=== PATIENT | male | born 1970 | race Caucasian/White ===

== ENCOUNTER 2021-11-02 07:15 | Emergency (ER) | payer MEDICAID, SELFPAY ==
[2021-11-02] MEDS: Ibuprofen 600 MG TABLET PO (10:31)
[2021-11-02] MEDS: Fluorescein Sodium STRIP 1 STRIP EYE-LEFT (10:33)
[2021-11-02] MEDS: Tetracaine HCl/PF 0.5% Oph Sol 4 ML DROPS 3 DROP EYE-LEFT (10:33)
--- NOTE | 2021-11-10 11:50 | ED.GENADULT ---
HPI - General Adult General Stated complaint: F/O in R eye Time Seen by Provider: 11/02/21 09:13 History of Present Illness HPI narrative: Patient complains of right eye photophobia and pain, denies vision loss, this started 2 days ago, no discharge Related Data Allergies Allergy/AdvReac Type Severity Reaction Status Date / Time amoxicillin [AMOXICILLIN] Allergy Mild HIVES Unverified 12/23/19 14:51 Review of Systems Review of Systems: Positive for right eye pain with light Negatives no fever no chills no dizziness no weakness no headache no neck pain no nausea or vomiting, no discharge from the eye no vision loss no injury to eye Yes all other systems are reviewed and are negative [facility] Past Medical History Source: nursing notes reviewed Social History Social History Advance Directives: Yes Advance Directives Information Provided: Yes Advance Directives on File: No Physical Exam ED General appearance is uncomfortable no acute distress, pacing The eyes pupils equal round reactive to light, extraocular motions are intact, visual acuity was not obtained patient uncooperative Staining for corneal abrasion did not show any dye uptake, tetracaine did not relieve the eye pain Neck is supple Respiratory no distress Skin no rash Course Course Course Narrative: Exam was limited due to patient's discomfort, I was not able to get an intra-ocular pressure reading He said he wanted to see an eye doctor and I called Dr. Harper office across the street, and they agreed to see the patient and that he should come over now At believe he has iritis and he left with instructions to go to Dr. Harper who office and he said he knew where it is and left the department to go to the eye doctor Discharge Plan Discharge Clinical Impression: Iritis Patient Disposition: Home, Self-Care Additional Instructions: Go to Dr. Harper office now they will see you and do a full examination Referrals: Crescencio Harper [Physician] - (Iritis) Interventions: ED Discharge Assessment Last Done: 11/02/21 10:34 Discharge Date/Time: 11/02/21 10:35
== END 2021-11-02 10:35 | disposition home or self-care (01) ==
PROVIDERS: Emergency Provider Student in an Organized Health Care Education/Training Program; PCP Family Medicine
DX: H20.9 Unspecified iridocyclitis (principal); T15.91XA Foreign body on external eye, part unspecified, right eye, initial encounter; X58.XXXA Exposure to other specified factors, initial encounter; Y93.9 Activity, unspecified; Y92.9 Unspecified place or not applicable; Y99.9 Unspecified external cause status
CPT/HCPCS: 99282; 99283

== ENCOUNTER 2022-10-18 20:01 | Emergency (ER) | payer OTHER, SELFPAY ==
[2022-10-18 20:12] VITALS: BP 151/73; BP 180/76; PULSE 69; PULSE 94; RESP 11; TEMP 36.9; O2SAT 98; O2SAT 99; BMI 22.1
--- NOTE | 2022-10-18 20:23 | ECG_ITS ---
Test Reason : OD Blood Pressure : / mmHG Vent. Rate : 064 BPM Atrial Rate : 064 BPM P-R Int : 180 ms QRS Dur : 098 ms QT Int : 404 ms P-R-T Axes : 074 068 058 degrees QTc Int : 416 ms Normal sinus rhythm Normal ECG No previous ECGs available Referred By: Generic ED Physician Electronically Signed By:ANNIA MARTEL MD
--- NOTE | 2022-10-18 21:16 | MHC.RECOVSUP ---
? Reason for consult:OPI o? Current location:ED10? o? Identified substance use concern:? -? Overdose -? Support ? Intervention: o? Community resources provided ? Plan:Discharge ? Additional information:Pt declined any services, says he's already receiving treatment and is on MAT but he missed h is dose and picked up. provided this pt with recovery resources and business card to contact for outpatient services.
[2022-10-18 22:02] VITALS: BP 127/74; PULSE 58; RESP 18; TEMP 36.3; O2SAT 96
--- NOTE | 2022-10-18 22:17 | ED.OVERDOSE ---
HPI - Overdose General Chief Complaint: Overdose Stated Complaint: fentanyl od, per ems Time Seen by Provider: 10/18/22 20:47 Source: patient Mode of arrival: EMS Limitations: no limitations History of Present Illness HPI Narrative: Patient comes to the emergency room by ambulance. Patient was found by bystanders, EMS called, per EMS patient was nodding off, agonal breathing. Patient received 0.4 mg of nasal Narcan. Patient had good response, reports using 1 bag of heroin and crack . Patient states this was accidental, denies suicidal or homicidal ideation. Patient states that he feels back to baseline. Related Data Allergies Allergy/AdvReac Type Severity Reaction Status Date / Time amoxicillin [AMOXICILLIN] Allergy Mild HIVES Unverified 12/23/19 14:51 Review of Systems Review of Systems: Constitutional : No Weight loss, No Fever, No Chills, No Night Sweats, No Fatigue, No Malaise ENT/Mouth : No Hearing loss, No Ear Pain, No Nasal Congestion, No Sinus Pain, No Hoarseness, No sore throat, No Rhinorrhea, No Swallowing Difficulty Eyes: No Eye Pain, No Swelling, No Redness, No Foreign Body, No Discharge, No Vision Changes Cardiovascular : No Chest Pain, No SOB, No Dyspnea on Exertion, No Orthopnea, No Edema, No Palpitations Respiratory : No Cough, No Sputum, No Wheezing, No Smoke Exposure, No Dyspnea Gastrointestinal : No Nausea, No Vomiting, No Diarrhea, No Constipation, No abdominal Pain, No Hematochezia, No Melena Genitourinary : no irregular bleeding, No Dysuria, No Urinary Frequency, No Hematuria, No Urinary Incontinence, No Urgency, No Flank Pain, No Urinary Flow Changes, No Hesitancy Musculoskeletal : No joint pain, No Myalgias, No Joint Swelling Skin : No Skin Lesions, No rash Neuro : No Weakness, No Numbness, No Paresthesias, No Loss of Consciousness, No Dizziness, No Headache Psych : No Anxiety/Panic, No Depression, No SI/HI/AH/VH, accidental overdose Heme/Lymph: No Bruising, No Bleeding,No Lymphadenopathy Endocrine : No Polyuria, No Polydipsia, No Temperature Intolerance PMF Past Medical History Medical History (Updated 10/18/22 @ 22:20 by Maria Esther Moreland MD) Polysubstance abuse Social History Social History Advance Directives: No Advance Directives Information Provided: Yes Physical Exam Vital Signs: Vital Signs: Last Vital Signs Temp 97.4 F 10/18/22 22:02 Pulse 58 10/18/22 22:02 Resp 18 10/18/22 22:02 BP 127/74 10/18/22 22:02 Pulse Ox 96 10/18/22 22:02 O2 Del Method Room Air 10/18/22 22:02 BMI result Body Mass Index 22.1 Const: Other: Appearance: Alert. Oriented X3. No acute distress. Eyes: Pupils equal, round and reactive to light. ENT: Pharynx normal. Neck: Normal inspection. Neck supple. No lymph nodes noted. No crepitus CVS: Normal heart rate and rhythm. Pulses normal. Normal S1 and S2 Respiratory: No respiratory distress. Breath sounds normal. No Wheezing. No rales Abdomen: Soft and nontender. No rigidity. No distention. Skin: Skin warm and dry. Normal skin color. Normal skin turgor. Extremities: No lower extremity edema. No Lacerations. No Rash Neuro: Oriented X 3. No motor deficit. No sensory deficit. Moving all extremities. No slurred speech. CN 2 through 12 grossly intact Psych: calm, cooperative, normal affect Medical Decision Making Medical Decision Making MDM Narrative: -patient had good response to Narcan, since patient arrived to the emergency room, patient has been awake and alert x3,, cooperative. -patient denies suicidal or homicidal ideation -vital stable, oxygen saturation 98% on room air -patient was in observation for over 2 hours. Patient feels completely back to baseline. Throughout his entire stay, patient has been saturating 96-99% on room air. -patient denied care/sude consult -patient given home Narcan My interpretation of EKG: Heart rate 64, no ST segment depression or elevation, no T-wave inversion, QTC 460 -patient denies any chest pain or shortness of breath. Differential Diagnosis Differential Diagnoses: The differential diagnosis associated with the presentation includes (Substance abuse, suicidal ideation, accidental intoxication) Discharge Plan Discharge Clinical Impression: Drug overdose Patient Disposition: Home, Self-Care Instructions: Adult Overdose (ED) Additional Instructions: Please follow-up with your primary care physician tomorrow. If you have any worsening or new symptoms, please return to the emergency room or call 911
--- NOTE | 2022-10-18 22:31 | PC.NURSE ---
Addendum entered by Yisel Good 10/18/22 22:31: pt changed into hospital attire. belongings secured in decon by security. pt calm and cooperative Original Note: late entry- pt vhsnged into hospital attire. belongings secured in decon. pt calm and coocper
[2022-10-18 22:37] VITALS: BP 125/60; PULSE 67; RESP 16; O2SAT 99
[2022-10-18] MEDS: Naloxone HCl Nasal TAKE HOME 4 MG SPRAY 8 MG NOSTRILALT (22:38)
--- NOTE | 2022-10-18 23:00 | PC.NURSE ---
pt ambulatory at discharge. pt given take home narcan. pt calm and cooperative. vss. pt provided with discharge packet. pt verbalizes understanding of discharge plan. pt brought to decon by this rn to obtain belongings
== END 2022-10-18 23:02 | disposition home or self-care (01) ==
PROVIDERS: Emergency Provider Emergency Medicine
DX: T40.411A Poisoning by fentanyl or fentanyl analogs, accidental (unintentional), initial encounter (principal); Y92.9 Unspecified place or not applicable; Z71.51 Drug abuse counseling and surveillance of drug abuser
CPT/HCPCS: 93005; 99284; 99285

== ENCOUNTER → 2022-10-18 20:23 | Outpatient (BNV) | payer OTHER, SELFPAY | PROVIDERS: Emergency Provider Emergency Medicine; Visit Provider Internal Medicine Cardiovascular Disease | DX: R06.02 Shortness of breath (principal); F11.20 Opioid dependence, uncomplicated | CPT/HCPCS: 93010 ==

== ENCOUNTER 2022-12-14 12:10 | Emergency (ER) | payer OTHER, SELFPAY ==
[2022-12-14 12:48] VITALS: BP 138/93; PULSE 62; RESP 15; TEMP 36.8; O2SAT 98; BMI 24.3
--- NOTE | 2022-12-14 12:49 | ED.EYEPROB ---
HPI - Eye Problem General Chief complaint: Eye Problems Stated complaint: Metal in R eye cant see Time Seen by Provider: 12/14/22 13:18 Source: patient Mode of arrival: ambulatory Limitations: no limitations History of Present Illness HPI Narrative: 52 yo male who uses corrective lenses but has not used them for 4-5 yrs as he misplaced them presents to the ER with complaints of right eye pain, photophobia, blurry vision after having a welding injury 6 days ago. 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 He was not using any safety glasses. Tetanus shot is not up-to-date Related Data Previous Rx's Medication Instructions Recorded erythromycin 5 mg/gram (0.5 %) eye 0.5 inch ophthalmic (eye) TID #3.5 12/14/22 ointment grams Allergies Allergy/AdvReac Type Severity Reaction Status Date / Time amoxicillin [AMOXICILLIN] Allergy Mild HIVES Unverified 12/23/19 14:51 Review of Systems Review of Systems: Yes all other systems are reviewed and are negative Constitutional: Constitutional: Reports no additional constitutional complaints, Denies body ache(s), Denies chills, Denies fever(s), Denies headache(s) and Denies weakness Eyes: Eyes: Reports no additional eye complaints, Denies change in vision, Denies eye discharge, Denies irritation, Reports eye pain, Reports requires corrective lenses and Reports photophobia ENT: Reports system reviewed and no additional complaints, except as documented, Denies dizziness, Denies headache(s), Denies nasal congestion, Denies nasal discharge and Denies neck pain Cardiovascular: Cardiovascular: Reports no additional cardiovascular complaints, Denies chest pain, Denies leg edema and Denies dyspnea Respiratory: Respiratory: Reports no additional respiratory complaints, Denies cough and Denies dyspnea Gastrointestinal: Gastrointestinal: Reports no additional gastrointestinal complaints, Denies abdominal pain, Denies diarrhea, Denies nausea and Denies vomiting Genitourinary: Genitourinary: Denies urinary incontinence Musculoskeletal: Musculoskeletal: Reports no additional musculoskeletal complaints, Denies back pain, Denies arthralgias, Denies joint swelling, Denies neck pain, Denies numbness and Denies tingling Integumentary/Breasts: Skin/Breast: Reports system reviewed and no additional complaints, except as docu and Denies rash Neurologic: Reports system reviewed and no additional complaints, except as documented, Denies Abnormal speech present, Denies dizziness, Denies headache(s), Denies numbness, Denies tingling and Denies weakness PMFSH Past Medical History Attestation statement: The following information was validated with the patient. Source: old records reviewed and nursing notes reviewed Medical History Polysubstance abuse Social History Social History Advance Directives: No Advance Directives Information Provided: Yes Physical Exam Vital Signs: Vital Signs: Last Vital Signs Temp 98.3 F 12/14/22 12:48 Pulse 62 12/14/22 12:48 Resp 15 12/14/22 12:48 BP 138/93 H 12/14/22 12:48 Pulse Ox 98 12/14/22 12:48 O2 Del Method Room Air 12/14/22 12:48 BMI result Body Mass Index 24.3 Const: General: cooperative, healthy appearing, comfortable and no acute distress Orientation/consciousness: patient oriented x3 Limitations: no limitations HEENT: Head: Yes normal to inspection Ears: hearing grossly normal bilaterally General nose exam: Normal external nose present Face and sinus: Yes normal facial exam Mouth: Normal oral and palatal mucosa present Throat: Yes posterior oropharynx normal Eyes: General: appearance normal, both eyes and all related structures Periorbital: periorbital findings normal Eyelids: Yes eyelids normal Conjunctivae: conjunctival abnormal (injection-right) Sclerae: scleral abnormal (right scleral swelling) Corneas: corneas abnormal on the right (at 3 o clock position there is rust ring ?FB) fluorescein used and fluorescein used Pupils: Equal, round and reactive pupils present EOM: EOMs intact bilaterally Direct Ophthalmoscopy: normal light reflex and photophobia Neck: Neck: Yes normal visual inspection, Yes full ROM and Yes no lymphadenopathy Chest: Chest palpation & inspection: normal inspection of the chest Resp: Effort & Inspection: normal respiratory effort Auscultation: clear to auscultation bilaterally Cardio: Rate: regular rate Rhythm: regular rhythm Peripheral pulses: Peripheral pulses 2+ throughout GI: Inspection: Yes normal to inspection Palpation (GI): Soft to palpation and nontender Auscultation: normal bowel sounds Back/Spine/Pelvis: Thoracic/Lumbar Spine: thoracic and lumbar spine normal to inspection Skin: General skin exam: no rashes or lesions noted Neuro: General: patient oriented x3, no focal motor deficits and normal sensation to monofilament Cranial nerves: Yes Equal, round and reactive pupils present Cognition (Neuro): normal cognition Speech: No Abnormal speech present Gait exam (Neuro): Normal gait present Motor exam (neuro): 5/5 motor strength present throughout Extrem: General: Yes normal to inspection Course Reevaluation(s) Reevaluation #1: Patient complains of right eye vision loss, foreign body sensation and pain with photophobia, he thinks it is from a welding injury at work 6 days ago and may have gotten a foreign body in the eye This is rapid medical exam in triage with full evaluation and dispo to be done by provider in the ER Medications Administered Discontinued Medications Generic Name Dose Route Start Last Admin Trade Name Freq PRN Reason Stop Dose Admin Diphtheria/Tetanus/Acell Pertussis 0.5 ml 12/14/22 13:25 12/14/22 13:50 Diphth,Pertus(Acell),Tet Adult 0.5 Ml Syringe IM 12/14/22 13:26 0.5 ml .ONCE ONE Administration Fluorescein Sodium 1 strip 12/14/22 13:18 12/14/22 13:24 Fluorescein Sodium Strip EYE-RIGHT 12/14/22 13:19 1 strip ONCE ONE Administration Tetracaine HCl 1 drop 12/14/22 13:18 12/14/22 13:24 Tetracaine Hcl/Pf 0.5% Oph Maile 4 Ml Drops EYE-RIGHT 12/14/22 13:19 1 drop ONCE ONE Administration Medical Decision Making Medical Decision Making MDM Narrative: 52 yo male who uses corrective lenses but does not have them with him presents to the ER with complaints of right eye pain, photophobia, blurry vision after having a welding injury 6 days ago. 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 He was not using any safety glasses. 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 Harper who recommended antibiotic ointment and he will follow-up with the patient in the office next week Prescription Management I considered prescription management with: Antibiotic see discussion above Discharge Plan Discharge Clinical Impression: Acute foreign body of right cornea Patient Disposition: Home, Self-Care Instructions: Eye Foreign Body (ED) Additional Instructions: CALL THE EYE DOCTOR NEXT WEEK TO FOLLOW-UP TAKE MOTRIN OR TYLENOL FOR PAIN NEEDED Prescriptions: New erythromycin 5 mg/gram (0.5 %) ointment 0.5 inch ophthalmic (eye) TID Qty: 3.5 0RF Referrals: Crescencio Harper [Physician] - 3 days
--- OUTSIDE RECORDS SUMMARY | 2022-12-14 13:23 | XMS_ITS | Continuity of Care Document ---
Author Name Unknown Organization [facility] [address] Address [address] [place] [address]- Care Team Providers Care Electric Blanket Packer Name Role Phone Lora GÓMEZ, Lobo Sharp Primary Care Physician [phone] [id number] Date(s[facility] 06/05/[facility] - 07/05/22 [facility] Adult [address] [place] [address]- Allergies, Adverse Reactions, Alerts No Known Allergies Immunizations Given and Recorded Vaccine Date Status Refusal Reason tetanus/diphtheria/pertussis, acel(Tdap) 05/07/19 Given influenza virus vaccine, inactivated 1 04/15/19 Gi jillian Not Given Vaccine Date Status Refusal Reason tetanus-diphtheria toxoids (Td) 04/15/19 Not Given Parent Or Guardian Refuses 1Result Comment: [facility]-[id number] Medications aspirin 81 mg oral delayed release tablet 81 mg, By Mouth, Daily, # 100 tablet, Refills 3, Tot. Refills 3, Maintenance, 05/10/21 12:56:00 EST, Route to Pharmacy Electronically, [facility], 179.5, cm, 09/23/19 12:23:00 EDT, Height Start Date: 05/10/21 Status: Ordered atorvastatin 10 mg oral tablet 1 tablet = 10 mg, By Mouth, Daily at bedtime, # 30 tablet, 0 Refills, Maintenance, 04/06/19 11:27:00 EST, Tablet, [facility], 183, cm, 04/06/19 5:31:00 EST, Height, 84.3, kg, 03/31/19 1:34:00 EST, Dry Weight Start Date: 04/06/19 Status: Ordered CVS PAIN RELIEF 500 MG TABLET CVS PAIN RELIEF 500 MG TABLET, 0 Refills, Maintenance, 04/15/19 13:13:00 EST Start Date: 04/15/19 Status: Ordered lisinopril 10 mg oral tablet 10 mg, 1, tablet, By Mouth, Daily, # 30 tablet, Refills 11, Tot. Refills 11, Maintenance, 11/15/19 12:58:00 EDT, Route to Pharmacy Electronically, [facility], 179.5, cm, 09/23/2011:23:00 EDT, Height, 84.3, kg, 03/31/19 1:34:00 ES... Start Date: 11/15/19 Status: Ordered methadone 10 mg oral tablet 3 tablet = 30 mg, By Mouth, Daily, 0 Refills, Maintenance, 04/06/19 11:28:00 EST, Tablet, Partial fill upon patient request Start Date: 04/06/19 Status: Ordered metoprolol 50 mg oral tablet, extended release 50 mg, 1, tablet, By Mouth, Daily, # 30 tablet, Refills 11, Tot. Refills 11, Maintenance, 05/10/21 12:57:00 EST, Route to Pharmacy Electronically, [facility], 179.5, cm, 09/23/2011:23:00 EDT, Height Start Date: 05/10/21 Status: Ordered Narcan 4 mg/0.1 mL nasal spray = 4 mg, Nares, Both, Once, # 2 each, 0 Refills, Soft Stop, 04/15/19 13:46:00 EST, [facility] #[id number], 179.5, cm, 04/15/19 13:12:00 EST, Height Start Date: 04/15/19 Status: Ordered Problem List Condition Confirmation Course Effective Dates Status H ealth Status Informant Acute systolic heart failure Confirmed Active Heroin overdose Confirmed Active Hilar lymphadenopathy Confirmed Active Skin infection Confirmed Active Insomnia Confirmed Active Opioid dependence, in remission Confirmed Active Tobacco abuse Confirmed Active Wound of skin Confirmed Active Social History Social History Type Response Smoking Status 10 or more cigarette s (1/2 pack or more)/day in last 30 days entered on: 03/31/19 Sex Patient Care team information Care Team Personnel Name: Stephanie Jay RN Position: S ED RN W/OE and Tasks Member Role: Primary Care Nurse Name: Renee Li RN Position: [facility] RN Member Role: Primary Care Nurse Name: Penny Hernandez RN Position: [facility] SN RN Member Role: Primary Care Nurse Name: Enriqueta Jacobo RN Position: [facility] RN Member Role: Primary Care Nurse Name: Lobo Paulino MD Position: [facility] Primary Care Physician Member Role: PCP Address: Address: [address] [place] [id number] [place] Care Team Related Persons Name: RIAZ COELHO Address: home [address] [place] [id number]
--- OUTSIDE RECORDS SUMMARY | 2022-12-14 13:23 | XMS_ITS | Continuity of Care Document ---
Author Name Unknown Organization [facility] Hans lt Address [address] [place] [address]- Care Team Providers Care Line Manager Name Role Phone Lobo Paulino MD Primary Care Physician Encounter [facility] [place] Date(s): 04/15/19 - 04/22/19 [facility] Adult [address] [place] [address]- [facility] Encounter Diagnosis Acute systolic heart failure(Discharge Diagnosis) - 04/15/19 Heroin overdose(Discharge Diagnosis) - 04/15/19 Tobacco abuse(Discharge Diagnosis) - 04/15/19 Wound of skin(Discharge Diagnosis) - 04/15/19 Hilar lymphadenopathy(Discharge Diagnosis) - 04/15/19 Insomnia(Discharge Diagnosis) - 04/15/19 Attending Physician: Shobha Mcgovern NP Referring Physician: Lobo Paulino MD Allergies, Adverse Reactions, Alerts Substance Reaction Severity Status NKA Active Immunizations Given and Recorded Vaccine Date Status Refusal Reason influenza virus vaccine, inactivated 1 04/15/19 Gi jillian Not Given Vaccine Date Status Refusal Reason tetanus-diphtheria toxoids (Td) 04/15/19 Not Given Parent Or Guardian Refuses 1Result Comment: [facility]-[id number] Medications aspirin 81 mg oral tablet 1 tablet = 81 mg, By Mouth, Daily, # 30 tablet, 0 Refills, Maintenance, 04/15/19 14:34:00 EST, Tablet Start Date: 04/15/19 Status: Ordered atorvastatin 10 mg oral tablet 1 tablet = 10 mg, By Mouth, Daily, # 30 tablet, 0 Refills, Maintenance, 04/15/19 14:35:00 EST Start Date: 04/15/19 Status: Ordered [facility] NICOTINE 21 MG/24HR PATCH [facility] NICOTINE 21 MG/24HR PATCH, 0 Refills, Maintenance, 04/15/19 13:13:00 EST Start Date: 04/15/19 Status: Ordered [facility] PAIN RELIEF 500 MG TABLET [facility] PAIN RELIEF 500 MG TABLET, 0 Refills, Maintenance, 04/15/19 13:13:00 EST Start Date: 04/15/19 Status: Ordered Hibiclens 4% soap 1 applicator, Topically, Once, # 240 mL, 1 Refills, Soft Stop, 04/15/19 13:45:00 EST, [id number], 1 applicator Topically Once, 179.5, cm, 04/15/19 13:12:00 EST, Height Start Date: 04/15/19 Status: Ordered lisinopril 10 mg oral tablet 10 mg, 1, tablet, By Mouth, Daily, # 30 tablet, Refills 0, Tot. Refills 0, Maintenance, 04/15/19 14:35:00 EST, Do Not Route Start Date: 04/15/19 Status: Ordered melatonin 5 mg oral tablet 1 tablet = 5 mg, By Mouth, Daily at bedtime, PRN for insomnia, # 60 tablet, 0 Refills, Acute 05/13/19 14:46:00 EST, 04/15/19 14:46:00 EST, Tablet, [facility]/pharmacy #[id number], 179.5, cm, 04/15/19 13:12:00 EST, Height Start Date: 04/15/19 Stop Date: 05/13/19 Status: Ordered methadone 10mg methadone 10mg, See Instructions, # 1 each, Refills 0, Tot. Refills 0, Maintenance, Pt taking 30mg daily, methadone clinic, 04/15/19 14:35:00 EST, Compound Start Date: 04/15/19 Status: Ordered metoprolol 50 mg oral tablet, extended release 50 mg, 1, tablet, By Mouth, Daily, # 30 tablet, Refills 0, Tot. Refills 0, Maintenance, 04/15/19 14:36:00 EST, Do Not Route Start Date: 04/15/19 Status: Ordered Narcan 4 mg/0.1 mL nasal spray = 4 mg, Nares, Both, Once, # 2 each, 0 Refills, Soft Stop, 04/15/19 13:46:00 EST, [id number], 179.5, cm, 04/15/19 13:12:00 EST, Height Start Date: 04/15/19 Status: Ordered Problem List Condition Effective Dates Status Health Status Inform ant Acute systolic heart failure(Confirmed) Active Heroin overdose(Confirmed) Active Hilar lymphadenopathy(Confirmed) Active Insomnia(Confirmed) Active Tobacco abuse(Confirmed) Active Wound of skin(Confirmed) Active Diagnosis Diagnosis Type Effective Dates Health Status Clinical Service Informant Acute systolic heart failure Discharge Diagnosis 04/15/19 Heroin overdose Discharge Diagnosis 04/15/19 Tobacco abuse Discharge Diagnosis 04/15/19 Wound of skin Discharge Diagnosis 04/15/19 Hilar lymphadenopathy Discharge Diagnosis 04/15/19 Insomnia Discharge Diagnosis 04/15/19 Vital Signs Most recent to oldest [Reference Range]: 1 Height 179.5 cm (04/15/19 1:12 PM) Weight 82.4 kg (04/15/19 1:12 PM) Oxygen Saturation [94-100 %] 98 % (04/15/19 1:12 PM) Pulse Rate [55-90 bpm] 68 bpm (04/15/19 1:12 PM) Body Mass Index [18.5-24.99] 25.57 *H* (04/15/19 1:12 PM) Blood Pressure [90-138/55-84 mm Hg] 124/ 62mm Hg (04/15/19 1:12 PM) Respiratory Rate [16-30 br/min] 16 br/mi n (04/15/19 1:12 PM) Temperature [96.8-100.4 DegF] 97.7 DegF (04/15/19 1:12 PM) Mode of Delivery (Oxygen) Room air (04/15/19 1:12 PM) Blood pressure sites Arm, right (04/15/19 1:12 PM) Temperature Route Oral (04/15/19 1:12 PM) Weight Obtained Via Standing scale (04/15/19 1:12 PM) Social History Social History Type Response Smoking Status 10 or more cigarette s (1/2 pack or more)/day in last 30 days; Other: 1 pack a day, for 34 years; entered on: 11/12/18 Sex
--- OUTSIDE RECORDS SUMMARY | 2022-12-14 13:23 | XMS_ITS | Continuity of Care Document ---
Author Name Unknown Organization [facility] Hans lt Address [address] [place] [address]- Care Team Providers Care Insurance Processing Clerk Name Role Phone Lobo Paulino MD Primary Care Physician [phone] Encounter [facility] [place] Date(s): 04/27/19 - 08/05/19 [facility] Adult [address] [place] [address]- [facility] Attending Physician: Lobo Paulino MD Allergies, Adverse Reactions, Alerts Substance Reaction Severity Status NKA Active Immunizations Given and Recorded Vaccine Date Status Refusal Reason tetanus/diphtheria/pertussis, acel(Tdap) 05/07/19 Given influenza virus vaccine, inactivated 1 04/15/19 Gi jillian Not Given Vaccine Date Status Refusal Reason tetanus-diphtheria toxoids (Td) 04/15/19 Not Given Parent Or Guardian Refuses 1Result Comment: [facility]-[id number] Medications aspirin 81 mg oral delayed release tablet 81 mg, By Mouth, Daily, # 30 tablet, Refills 11, Tot. Refills 11, Maintenance, 05/04/19 17:22:00 EST, Route to Pharmacy Electronically, [facility], 179.5, cm, 04/27/19 9:59:00 EST, Height, 84.3, kg, 03/31/19 1:34:00 EST, Dry W... Start Date: 05/04/19 Status: Ordered atorvastatin 10 mg oral tablet 1 tablet = 10 mg, By Mouth, Daily at bedtime, # 30 tablet, 0 Refills, Maintenance, 04/06/19 11:27:00 EST, Tablet, [facility], 183, cm, 04/06/19 5:31:00 EST, [...] By Mouth, Daily, # 30 tablet, Refills 5, Tot. Refills 5, Maintenance, 05/04/19 17:23:00 EST, Route to Pharmacy Electronically, [facility], 179.5, cm, 04/27/19 9:59:00 EST, Height, 84.3, kg, 03/31/19 1:34:00 E... Start Date: 05/04/19 Status: Ordered methadone 10 mg oral tablet 3 tablet = 30 mg, By Mouth, Daily, 0 Refills, Maintenance, 04/06/19 11:28:00 EST, Tablet, Partial fill upon patient request Start Date: 04/06/19 Status: Ordered methadone 10mg methadone 10mg, See Instructions, # 1 each, Refills 0, Tot. Refills 0, Maintenance, Pt taking 30mg daily, methadone clinic, 04/15/19 14:35:00 EST, Compound Start Date: 04/15/19 Status: Ordered metoprolol 50 mg oral tablet, extended release 50 mg, 1, tablet, By Mouth, Daily, # 30 tablet, Refills 5, Tot. Refills 5, Maintenance, 05/04/19 17:23:00 EST, Route to Pharmacy Electronically, [facility], 179.5, cm, 04/27/19 9:59:00 EST, Height, 84.3, kg, 03/31/19 1:34:00 E... Start Date: 05/04/19 Status: Ordered Narcan 4 mg/0.1 mL nasal spray = 4 mg, Nares, Both, Once, # 2 each, 0 Refills, Soft Stop, 04/15/19 13:46:00 EST, [facility]/pharmacy #[id number], 179.5, cm, 04/15/19 13:12:00 EST, Height Start Date: 04/15/19 Status: Ordered nicotine 21 mg/24 hr transdermal film, extended release 1 patch, Topically, Daily, for 14 days, # 14 patch, 0 Refills, Acute 08/16/19 14:08:00 EDT, 08/02/19 14:08:00 EDT, Patch, [facility], 1 patch Topically Daily,x14 days, 179.5, cm,05/07/19 9:39:00 EST, Height, 84.3, kg, 03/31/19 1:... Start Date: 08/02/19 Stop Date: 08/16/19 Status: Ordered Problem List Condition Effective Dates Status Health Status Inform ant Acute systolic heart failure(Confirmed) Active Heroin overdose(Confirmed) Active Hilar lymphadenopathy(Confirmed) Active Insomnia(Confirmed) Active Opioid dependence, in remission(Confirmed) Active Tobacco abuse(Confirmed) Active Wound of skin(Confirmed) Active Social History Social History Type Response Smoking Status 10 or more cigarette s (1/2 pack or more)/day in last 30 days entered on: 03/31/19 Sex
--- OUTSIDE RECORDS SUMMARY | 2022-12-14 13:23 | XMS_ITS | Continuity of Care Document ---
Author Name Unknown Organization [facility] Hans lt Address [address] [place] [address]- Care Team Providers Care Tungsten Refiner Name Role Phone Lobo Paulino MD Primary Care Physician [phone] Encounter [facility] [id number] Date(s): 06/13/20 - 07/15/20 [facility] Adult [address] [place] [address]- Attending Physician: Lobo Paulino MD Allergies, Adverse Reactions, Alerts Substance Reaction Severity Status NKA Active Immunizations Given and Recorded Vaccine Date Status Refusal Reason tetanus/diphtheria/pertussis, acel(Tdap) 05/07/19 Given influenza virus vaccine, inactivated 1 04/15/19 Gi jillian Not Given Vaccine Date Status Refusal Reason tetanus-diphtheria toxoids (Td) 04/15/19 Not Given Parent Or Guardian Refuses 1Result Comment: [facility]-[id number] Medications aspirin 81 mg oral delayed release tablet 81 mg, By Mouth, Daily, # 100 tablet, Refills 3, Tot. Refills 3, Maintenance, 06/14/20 17:14:00 EST, Route to Pharmacy Electronically, [facility], 179.5, cm, 09/23/19 12:23:00 EDT, Height, 84.3, kg, 03/31/19 1:34:00 EST, Dry Weight Start Date: 06/14/20 Status: Ordered atorvastatin 10 mg oral tablet 1 tablet = 10 mg, By Mouth, Daily at bedtime, # 30 tablet, 0 Refills, Maintenance, 04/06/19 11:27:00 EST, Tablet, [facility], 183, cm, 04/06/19 5:31:00 [...] 11/15/19 12:58:00 EDT, Route to Pharmacy Electronically, [facility], 179.5, cm, 09/23/2011:23:00 EDT, Height, 84.3, [...] 11/15/19 12:58:00 EDT, Route to Pharmacy Electronically, [facility], 179.5, cm, 09/23/2011:23:00 EDT, Height, 84.3, kg, 03/31/19 1:34:00 ES... Start Date: 11/15/19 Status: Ordered Narcan 4 mg/0.1 mL nasal spray = 4 mg, Nares, Both, Once, # 2 each, 0 Refills, Soft Stop, 04/15/19 13:46:00 EST, [id number], 179.5, cm, 04/15/19 13:12:00 EST, Height Start Date: 04/15/19 Status: Ordered Problem List Condition Effective Dates Status Health Status Inform ant Acute systolic heart failure(Confirmed) Active Heroin overdose(Confirmed) Active Hilar lymphadenopathy(Confirmed) Active Skin infection(Confirmed) Active Insomnia(Confirmed) Active Opioid dependence, in remission(Confirmed) Active Tobacco abuse(Confirmed) Active Wound of skin(Confirmed) Active Social History Social History Type Response Smoking Status 10 or more cigarette s (1/2 pack or more)/day in last 30 days entered on: 03/31/19 Sex
--- OUTSIDE RECORDS SUMMARY | 2022-12-14 13:23 | XMS_ITS | Continuity of Care Document ---
Author Name Unknown Organization [facility] Address [address] [place] [address]- Care Team Providers Care Telemetry Rn Name Role Phone Lora GÓMEZ, Lobo Sharp Primary Care Physician [place] [facility] [place] Date(s): 06/16/20 - 07/16/20 [facility] [address] [place] [address]- Allergies, Adverse Reactions, Alerts Substance Reaction Severity Status NKA Active Immunizations Given and Recorded Vaccine Date Status Refusal Reason tetanus/diphtheria/pertussis, acel(Tdap) 05/07/19 Given influenza virus vaccine, inactivated 1 04/15/19 Gi jillian Not Given Vaccine Date Status Refusal Reason tetanus-diphtheria toxoids (Td) 04/15/19 Not Given Parent Or Guardian Refuses 1Result Comment: [facility]-[id number] Medications aspirin 81 mg oral delayed release tablet 81 mg, By Mouth, Daily, # 100 tablet, Refills 3, Tot. Refills 3, Maintenance, 06/14/20 17:14:00 EST, Route to Pharmacy Electronically, [facility], 179.5, cm, 09/23/19 12:23:00 EDT, Height, 84.3, kg, 03/31/19 1:34:00 EST, Dry Weight Start Date: 06/14/20 Status: Ordered atorvastatin 10 mg oral tablet 1 tablet = 10 mg, By Mouth, Daily at bedtime, # 30 tablet, 0 Refills, Maintenance, 04/06/19 11:27:00 EST, Tablet, [facility], 183, cm, 04/06/19 5:31:00 EST, [...] 11/15/19 12:58:00 EDT, Route to Pharmacy Electronically, [facility], 179.5, cm, 09/23/2011:23:00 EDT, Height, 84.3, [...] 11/15/19 12:58:00 EDT, Route to Pharmacy Electronically, [facility], 179.5, cm, 09/23/2011:23:00 EDT, Height, 84.3, [...]
--- OUTSIDE RECORDS SUMMARY | 2022-12-14 13:23 | XMS_ITS | Continuity of Care Document ---
Author Name Unknown Organization [facility] Hans lt Address [address] [place] [address]- Care Team Providers Care Talent Consultant Name Role Phone Lora GÓMEZ, Lobo Sharp Primary Care Physician [phone] [place] [facility] [place] 07/02/19 [facility] Adult [address] [place] [address]- [facility] Attending Physician: Tracy Crawley Admitting Physician: Tracy Crawley Referring Physician: AdmtrTracy Allergies, Adverse Reactions, Alerts Substance Reaction Severity Status NKA Active Immunizations Given and Recorded Vaccine Date Status Refusal Reason tetanus/diphtheria/pertussis, acel(Tdap) 05/07/19 Given influenza virus vaccine, inactivated 1 04/15/19 Gi jillian Not Given Vaccine Date Status Refusal Reason tetanus-diphtheria toxoids (Td) 04/15/19 Not Given Parent Or Guardian Refuses 1Result Comment: [facility]-[id number] Medications aspirin 81 mg oral delayed release tablet 81 mg, By Mouth, Daily, # 30 tablet, Refills 11, Tot. Refills 11, Maintenance, 05/04/19 17:22:00 EST, Route to Pharmacy Electronically, [facility], 179.5, cm, 04/27/19 9:59:00 EST, Height, 84.3, kg, 03/31/19 1:34:00 EST, Dry W... Start Date: 05/04/19 Status: Ordered atorvastatin 10 mg oral tablet 1 tablet = 10 mg, By Mouth, Daily at bedtime, # 30 tablet, 0 Refills, Maintenance, 04/06/19 11:27:00 EST, Tablet, [facility], 183, cm, 04/06/19 5:31:00 [...] 05/04/19 17:23:00 EST, Route to Pharmacy Electronically, [facility], 179.5, cm, 04/27/19 [...] 05/04/19 17:23:00 EST, Route to Pharmacy Electronically, [facility], 179.5, cm, 04/27/19 9:59:00 EST, Height, 84.3, kg, 03/31/19 1:34:00 E... Start Date: 05/04/19 Status: Ordered Narcan 4 mg/0.1 mL nasal spray = 4 mg, Nares, Both, Once, # 2 each, 0 Refills, Soft Stop, 04/15/19 13:46:00 EST, [facility]/pharmacy #[id number], 179.5, cm, 04/15/19 13:12:00 EST, Height Start Date: 04/15/19 Status: Ordered nicotine 21 mg/24 hr transdermal film, extended release 1 patch, Topically, Daily, for 14 days, # 14 patch, 2 Refills, Acute 07/20/19 10:23:00 EDT, 06/08/19 10:23:00 EST, Patch, [facility], 1 patch Topically Daily,x14 days, 179.5,cm, 05/07/19 9:39:00 EST, Height, 84.3, kg, ... Start Date: 06/08/19 Stop Date: 07/20/19 Status: Ordered Problem List Condition Effective Dates [...]
--- OUTSIDE RECORDS SUMMARY | 2022-12-14 13:23 | XMS_ITS | Continuity of Care Document ---
Author Name Unknown Organization [facility] Hans lt Address [address] [place] [address]- Care Team Providers Care Director Of Accreditation Name Role Phone Lora GÓMZE, Lobo Sharp Primary Care Physician Encounter [facility] [place] Date(s): 04/28/20 - 05/05/20 [facility] Adult [address] [place] [address]- Attending Physician: Ja WILLIAM, Marylu Allergies, Adverse Reactions, Alerts Substance Reaction Severity Status NKA Active Immunizations Given and Recorded Vaccine Date Status Refusal Reason tetanus/diphtheria/pertussis, acel(Tdap) 05/07/19 Given influenza virus vaccine, inactivated 1 04/15/19 Gi jillian Not Given Vaccine Date Status Refusal Reason tetanus-diphtheria toxoids (Td) 04/15/19 Not Given Parent Or Guardian Refuses 1Result Comment: [facility]-[id number] Medications aspirin 81 mg oral delayed release tablet 81 mg, By Mouth, Daily, # 30 tablet, Refills 11, Tot. Refills 11, Maintenance, 05/04/19 17:22:00 EST, Route to Pharmacy Electronically, [facility], 179.5, cm, 04/27/19 9:59:00 EST, Height, 84.3, kg, 03/31/19 1:34:00 EST, Dry W... Start Date: 05/04/19 Status: Ordered atorvastatin 10 mg oral tablet 1 tablet = 10 mg, By Mouth, Daily at bedtime, # 30 tablet, 0 Refills, Maintenance, 04/06/19 11:27:00 EST, Tablet, [facility], 183, cm, 04/06/19 5:31:00 EST, [...] 11/15/19 12:58:00 EDT, Route to Pharmacy Electronically, [facility], 179.5, cm, 09/23/2011:23:00 EDT, Height, 84.3, [...] 11/15/19 12:58:00 EDT, Route to Pharmacy Electronically, [facility], 179.5, cm, 09/23/2011:23:00 EDT, Height, 84.3, [...]
--- OUTSIDE RECORDS SUMMARY | 2022-12-14 13:23 | XMS_ITS | Continuity of Care Document ---
Author Name Unknown Organization [facility] Address [address] [place] [address]- Care Team Providers Care Pattern Weaver Name Role Phone Lobo Paulino MD Primary Care Physician [phone] Encounter [facility] [place] Date(s): 05/13/19 - 07/14/19 [facility] [address] [place] [address]- [facility] Attending Physician: Param Benavides MD Admitting Physician: Param Benavides MD Referring Physician: Lobo Paulino MD Allergies, Adverse Reactions, Alerts Substance Reaction Severity Status NKA Active Immunizations Given and Recorded Vaccine Date Status Refusal Reason tetanus/diphtheria/pertussis, acel(Tdap) 05/07/19 Given influenza virus vaccine, inactivated 1 04/15/19 Gi jillian Not Given Vaccine Date Status Refusal Reason tetanus-diphtheria toxoids (Td) 04/15/19 Not Given Parent Or Guardian Refuses 1Result Comment: [facility]-[id number] Medications aspirin 81 mg oral delayed release tablet 81 mg, By Mouth, Daily, # 30 tablet, Refills 11, Tot. Refills 11, Maintenance, 05/04/19 17:22:00 EST, Route to Pharmacy Electronically, [facility], 179.5, cm, 04/27/19 9:59:00 EST, Height, 84.3, kg, 03/31/19 1:34:00 EST, Dry W... Start Date: 05/04/19 Status: Ordered atorvastatin 10 mg oral tablet 1 tablet = 10 mg, By Mouth, Daily at bedtime, # 30 tablet, 0 Refills, Maintenance, 04/06/19 11:27:00 EST, Tablet, [facility], 183, cm, 04/06/19 5:31:00 EST, [...] 05/04/19 17:23:00 EST, Route to Pharmacy Electronically, [facility], 179.5, cm, 04/27/19 9:59:00 [...] 05/04/19 17:23:00 EST, Route to Pharmacy Electronically, [facility], 179.5, cm, 04/27/19 9:59:00 EST, Height, 84.3, kg, 03/31/19 1:34:00 E... Start Date: 05/04/19 Status: Ordered Narcan 4 mg/0.1 mL nasal spray = 4 mg, Nares, Both, Once, # 2 each, 0 Refills, Soft Stop, 04/15/19 13:46:00 EST, [facility]/pharmacy #[id number], 179.5, cm, 04/15/19 13:12:00 EST, Height Start Date: 04/15/19 Status: Ordered nicotine 21 mg/24 hr transdermal film, extended release 1 patch, Topically, Daily, for 14 days, # 14 patch, 2 Refills, Acute 07/20/19 10:23:00 EDT, 06/08/19 10:23:00 EST, Patch, [facility], 1 patch Topically Daily,x14 [...]
--- OUTSIDE RECORDS SUMMARY | 2022-12-14 13:23 | XMS_ITS | Continuity of Care Document ---
Author Name Unknown Organization [facility] Hans lt Address [address] [place] [address]- Care Team Providers Care Marketing Team Lead Name Role Phone Lobo Paulino MD Primary Care Physician Encounter [facility] [place] Date(s): 06/18/19 - 07/22/19 [facility] Adult [address] [place] [address]- [facility] Attending Physician: Lobo Paulino MD Allergies, Adverse Reactions, Alerts Substance Reaction Severity Status NKA Active Immunizations Given and Recorded Vaccine Date Status Refusal Reason tetanus/diphtheria/pertussis, acel(Tdap) 05/07/19 Given influenza virus vaccine, inactivated 1 04/15/19 Gi jillian Not Given Vaccine Date Status Refusal Reason tetanus-diphtheria toxoids (Td) 04/15/19 Not Given Parent Or Guardian Refuses 1Result Comment: [facility]-[id number] Medications aspirin 81 mg oral delayed release tablet 81 mg, By Mouth, Daily, # 30 tablet, Refills 11, Tot. Refills 11, Maintenance, 05/04/19 17:22:00 EST, Route to Pharmacy Electronically, [facility], 179.5, cm, 04/27/19 9:59:00 EST, Height, 84.3, kg, 03/31/19 1:34:00 EST, Dry W... Start Date: 05/04/19 Status: Ordered atorvastatin 10 mg oral tablet 1 tablet = 10 mg, By Mouth, Daily at bedtime, # 30 tablet, 0 Refills, Maintenance, 04/06/19 11:27:00 EST, Tablet, [facility], 183, cm, 04/06/19 5:31:00 [...] EST, Height Start Date: 04/15/19 Status: Ordered ibuprofen 800 mg oral tablet 800 mg, 1, tablet, By Mouth, 3 times a day, PRN, # 30 tablet, Refills 0, Tot. Refills 0, Acute 08/05/19 16:17:00 EDT, Pain , Moderate, 07/22/19 16:17:00 EDT, Route to Pharmacy Electronically, [facility], 179.5, cm, 05/07/19 9:39:00... Start Date: 07/22/19 Stop Date: 08/05/19 Status: Ordered lisinopril 10 mg oral tablet 10 mg, 1, tablet, By Mouth, Daily, # 30 tablet, Refills 5, Tot. Refills 5, Maintenance, 05/04/19 17:23:00 EST, Route to Pharmacy Electronically, [facility], 179.5, cm, 04/27/19 [...] 05/04/19 17:23:00 EST, Route to Pharmacy Electronically, [facility], 179.5, cm, 04/27/19 9:59:00 EST, Height, 84.3, kg, 03/31/19 1:34:00 E... Start Date: 05/04/19 Status: Ordered Narcan 4 mg/0.1 mL nasal spray = 4 mg, Nares, Both, Once, # 2 each, 0 Refills, Soft Stop, 04/15/19 13:46:00 EST, [facility]/pharmacy #[id number], 179.5, cm, 04/15/19 13:12:00 EST, Height Start Date: 04/15/19 Status: Ordered sulfamethoxazole-trimethoprim 800 mg-160 mg oral tablet 1 tablet, By Mouth, Every 12 hours, # 14 tablet, 0 Refills, Acute 07/29/19 16:16:00 EDT, 07/22/19 16:15:00 EDT, Tablet, [facility], 1 tablet By Mouth Every 12 hours, 179.5, cm, 05/07/19 9:39:00 EST, Height, 84.3, kg, 03/31/19 1:34:... Start Date: 07/22/19 Stop Date: 07/29/19 Status: Ordered Problem List Condition Effective Dates [...]
--- OUTSIDE RECORDS SUMMARY | 2022-12-14 13:23 | XMS_ITS | Continuity of Care Document ---
Author Name Unknown Organization [facility] Hans lt Address [address] [place] [address]- Care Team Providers Care Manufacturing Cost Estimator Name Role Phone Lora GÓMEZ, Lobo Sharp Primary Care Physician Encounter [facility] Date(s): 11/02/21 - 12/02/21 [facility] Adult [address] [place] [address]- Allergies, Adverse Reactions, Alerts No Known Allergies Immunizations Given and Recorded Vaccine Date Status Refusal Reason tetanus/diphtheria/pertussis, acel(Tdap) 05/07/19 Given influenza virus vaccine, inactivated 1 04/15/19 Gi jillian Not Given Vaccine Date Status Refusal Reason tetanus-diphtheria toxoids (Td) 04/15/19 Not Given Parent Or Guardian Refuses 1Result Comment: [facility]-[id number] Medications aspirin 81 mg oral delayed release tablet 81 mg, By Mouth, Daily, # 100 tablet, Refills 3, Tot. Refills 3, Maintenance, 05/10/21 12:56:00 EST, Route to Pharmacy Electronically, [facility], 179.5, cm, 09/23/19 12:23:00 EDT, Height Start Date: 05/10/21 Status: Ordered atorvastatin 10 mg oral tablet 1 tablet = 10 mg, By Mouth, Daily at bedtime, # 30 tablet, 0 Refills, Maintenance, 04/06/19 11:27:00 EST, Tablet, [facility], 183, cm, 04/06/19 5:31:00 [...] 11/15/19 12:58:00 EDT, Route to Pharmacy Electronically, [facility], 179.5, cm, 09/23/2011:23:00 EDT, Height, 84.3, [...] 05/10/21 12:57:00 EST, Route to Pharmacy Electronically, [facility], 179.5, cm, 09/23/2011:23:00 EDT, Height Start [...] last 30 days entered on: 03/31/19 Sex Care Team Personnel Name: Lobo Paulino MD Address: [address] [place] [id number]- [place]
--- OUTSIDE RECORDS SUMMARY | 2022-12-14 13:23 | XMS_ITS | Continuity of Care Document ---
Author Name Unknown Organization [facility] Hans lt Address [address] [place] [address]- Care Team Providers Care Algebra Tutor Name Role Phone Lora GÓMEZ, Lobo Sharp Primary Care Physician [phone] [place] [facility] [id number] Date(s): 07/25/20 - 08/24/20 [facility] Adult [address] [place] [address]- Attending Physician: Tracy Crawley Admitting Physician: Tracy Crawley Referring Physician: AdmtrTracy Allergies, Adverse Reactions, Alerts Substance Reaction Severity Status NKA Active Immunizations Given and Recorded Vaccine Date Status Refusal Reason tetanus/diphtheria/pertussis, acel(Tdap) 05/07/19 Given influenza virus vaccine, inactivated 1 04/15/19 Gi jillian Not Given Vaccine Date Status Refusal Reason tetanus-diphtheria toxoids (Td) 04/15/19 Not Given Parent Or Guardian Refuses 1Result Comment: [facility]-[id number] Medications aspirin 81 mg oral delayed release tablet 81 mg, By Mouth, Daily, # 100 tablet, Refills 3, Tot. Refills 3, Maintenance, 06/14/20 17:14:00 EST, Route to Pharmacy Electronically, [facility], 179.5, cm, 09/23/19 12:23:00 EDT, Height, 84.3, kg, 03/31/19 1:34:00 EST, Dry Weight Start Date: 06/14/20 Status: Ordered atorvastatin 10 mg oral tablet 1 tablet = 10 mg, By Mouth, Daily at bedtime, # 30 tablet, 0 Refills, Maintenance, 04/06/19 11:27:00 EST, Tablet, [facility], 183, cm, 04/06/19 5:31:00 [...] 11/15/19 12:58:00 EDT, Route to Pharmacy Electronically, [facility], 179.5, cm, 09/23/2011:23:00 EDT, Height, [...] 11/15/19 12:58:00 EDT, Route to Pharmacy Electronically, [facility], 179.5, cm, 09/23/2011:23:00 EDT, Height, [...]
--- OUTSIDE RECORDS SUMMARY | 2022-12-14 13:23 | XMS_ITS | Continuity of Care Document ---
Author Name Unknown Organization [facility] Hans lt Address [address] [place] [address]- Care Team Providers Care Tobacco Acreage Measurer Name Role Phone Lora GÓMEZ, Lobo Sharp Primary Care Physician Encounter [facility] [place] Date(s): 10/13/19 - 10/20/19 [facility] Adult [address] [place] [address]- [facility] Encounter Diagnosis Skin infection(Discharge Diagnosis) - 10/13/19 Attending Physician: Jerome WILLIAM, Aminah Pena Allergies, Adverse Reactions, Alerts Substance Reaction Severity Status NKA Active Immunizations Given and Recorded Vaccine Date Status Refusal Reason tetanus/diphtheria/pertussis, acel(Tdap) 05/07/19 Given influenza virus vaccine, inactivated 1 04/15/19 Gi jillian Not Given Vaccine Date Status Refusal Reason tetanus-diphtheria toxoids (Td) 04/15/19 Not Given Parent Or Guardian Refuses 1Result Comment: [facility]-[id number] Medications aspirin 81 mg oral delayed release tablet 81 mg, By Mouth, Daily, # 30 tablet, Refills 11, Tot. Refills 11, Maintenance, 05/04/19 17:22:00 EST, Route to Pharmacy Electronically, [facility], 179.5, cm, 04/27/19 9:59:00 EST, Height, 84.3, kg, 03/31/19 1:34:00 EST, Dry W... Start Date: 05/04/19 Status: Ordered atorvastatin 10 mg oral tablet 1 tablet = 10 mg, By Mouth, Daily at bedtime, # 30 tablet, 0 Refills, Maintenance, 04/06/19 11:27:00 EST, Tablet, [facility], 183, cm, 04/06/19 5:31:00 EST, Height, 84.3, kg, 03/31/19 1:34:00 EST, Dry Weight Start Date: 04/06/19 Status: Ordered [facility]S PAIN RELIEF 500 MG TABLET CVS PAIN RELIEF 500 MG TABLET, 0 Refills, Maintenance, 04/15/19 13:13:00 EST Start Date: 04/15/19 Status: Ordered doxycycline hyclate 100 mg oral capsule 1 capsule = 100 mg, By Mouth, Every 12 hours, for 10 days, # 20 capsule, 0 Refills, Acute 10/23/19 13:32:00 EDT, 10/13/19 13:32:00 EDT, Capsule, [facility], 179.5, cm, 09/23/19 12:23:00 EDT, Height, 84.3, kg, 03/31/19 1:34:00 EST,... Start Date: 10/13/19 Stop Date: 10/23/19 Status: Ordered lisinopril 10 mg oral tablet 10 mg, 1, tablet, By Mouth, Daily, # 30 tablet, Refills 5, Tot. Refills 5, Maintenance, 05/04/19 17:23:00 EST, Route to Pharmacy Electronically, [facility], 179.5, cm, [...] 05/04/19 17:23:00 EST, Route to Pharmacy Electronically, [facility], 179.5, cm, 04/27/19 9:59:00 EST, Height, 84.3, kg, 03/31/19 1:34:00 E... Start Date: 05/04/19 Status: Ordered Narcan 4 mg/0.1 mL nasal spray = 4 mg, Nares, Both, Once, # 2 each, 0 Refills, Soft Stop, 04/15/19 13:46:00 EST, [facility]acy #[id number], 179.5, cm, 04/15/19 13:12:00 EST, Height Start Date: 04/15/19 Status: Ordered Problem List Condition Effective Dates Status Health Status Inform ant Acute systolic heart failure(Confirmed) Active Heroin overdose(Confirmed) Active Hilar lymphadenopathy(Confirmed) Active Skin infection(Confirmed) Active Insomnia(Confirmed) Active Opioid dependence, in remission(Confirmed) Active Tobacco abuse(Confirmed) Active Wound of skin(Confirmed) Active Diagnosis Diagnosis Type Effective Dates Health Status Cl inical Service Informant Skin infection Discharge Diagnosis 10/13/19 Social History Social History Type Response Smoking Status 10 or more cigarette s (1/2 pack or more)/day in last 30 days entered on: 03/31/19 Sex
--- OUTSIDE RECORDS SUMMARY | 2022-12-14 13:23 | XMS_ITS | Continuity of Care Document ---
Author Name Unknown Organization [facility] Address [address] [place] [address]- Care Team Providers Care Weight Reducing Technician Name Role Phone Lora GÓMEZ, Lobo Sharp Primary Care Physician [phone] Encounter [facility] [place] Date(s): 04/16/19 - 06/19/19 [facility] [address] [place] [address]- [facility] Attending Physician: Param Benavides MD Admitting Physician: Param Benavides MD Referring Physician: Froilan RESPIRATORY PHYSICIANShobha Allergies, Adverse Reactions, Alerts Substance Reaction Severity Status NKA Active Immunizations Given and Recorded Vaccine Date Status Refusal Reason tetanus/diphtheria/pertussis, acel(Tdap) 05/07/19 Given influenza virus vaccine, inactivated 1 04/15/19 Gi jillian Not Given Vaccine Date Status Refusal Reason tetanus-diphtheria toxoids (Td) 04/15/19 Not Given Parent Or Guardian Refuses 1Result Comment: [facility]-[id number] Medications aspirin 81 mg oral delayed release tablet 81 mg, By Mouth, Daily, # 30 tablet, Refills 11, Tot. Refills 11, Maintenance, 05/04/19 17:22:00 EST, Route to Pharmacy Electronically, [facility], 179.5, cm, 04/27/19 9:59:00 EST, Height, 84.3, kg, 03/31/19 1:34:00 EST, Dry W... Start Date: 05/04/19 Status: Ordered atorvastatin 10 mg oral tablet 1 tablet = 10 mg, By Mouth, Daily at bedtime, # 30 tablet, 0 Refills, Maintenance, 04/06/19 11:27:00 EST, Tablet, [facility], 183, cm, 04/06/19 [...] 05/04/19 17:23:00 EST, Route to Pharmacy Electronically, [facility], 179.5, cm, 04/27/19 9:59:00 [...] 05/04/19 17:23:00 EST, Route to Pharmacy Electronically, [facility], 179.5, cm, 04/27/19 9:59:00 EST, Height, 84.3, kg, 03/31/19 1:34:00 E... Start Date: 05/04/19 Status: Ordered Narcan 4 mg/0.1 mL nasal spray = 4 mg, Nares, Both, Once, # 2 each, 0 Refills, Soft Stop, 04/15/19 13:46:00 EST, [facility] #[id number], 179.5, cm, 04/15/19 13:12:00 EST, Height Start Date: 04/15/19 Status: Ordered nicotine 21 mg/24 hr transdermal film, extended release 1 patch, Topically, Daily, for 14 days, # 14 patch, 2 Refills, Acute 07/20/19 10:23:00 EDT, 06/08/19 10:23:00 EST, Patch, [facility], 1 patch Topically Daily,x14 [...]
--- OUTSIDE RECORDS SUMMARY | 2022-12-14 13:23 | XMS_ITS | Continuity of Care Document ---
Author Name Unknown Organization [facility] Hans lt Address [address] [place] [address]- Care Team Providers Care Industrial Arts Teacher Name Role Phone Lora GÓMEZ, Lobo Sharp Primary Care Physician [phone] [id number] Date(s): 06/13/20 - 07/13/20 [facility] Adult [address] [place] [address]- Allergies, Adverse Reactions, Alerts Substance Reaction Severity Status NKA Active Immunizations Given and Recorded Vaccine Date Status Refusal Reason tetanus/diphtheria/pertussis, acel(Tdap) 05/07/19 Given influenza virus vaccine, inactivated 1 04/15/19 Gi jillian Not Given Vaccine Date Status Refusal Reason tetanus-diphtheria toxoids (Td) 04/15/19 Not Given Parent Or Guardian Refuses 1Result Comment: [facility]-[id number] Medications aspirin 81 mg oral delayed release tablet 81 mg, By Mouth, Daily, # 100 tablet, Refills 3, Tot. Refills 3, Maintenance, 06/14/20 17:14:00 EST, Route to Pharmacy Electronically, [facility], 179.5, cm, 09/23/19 12:23:00 EDT, Height, 84.3, kg, 03/31/19 1:34:00 EST, Dry Weight Start Date: 06/14/20 Status: Ordered atorvastatin 10 mg oral tablet 1 tablet = 10 mg, By Mouth, Daily at bedtime, # 30 tablet, 0 Refills, Maintenance, 04/06/19 11:27:00 EST, Tablet, [facility], 183, cm, 04/06/19 5:31:00 EST, [...] 11/15/19 12:58:00 EDT, Route to Pharmacy Electronically, [facility], 179.5, cm, 09/23/2011:23:00 EDT, Height, 84.3, [...] 11/15/19 12:58:00 EDT, Route to Pharmacy Electronically, [facility], 179.5, cm, 09/23/2011:23:00 EDT, Height, 84.3, [...]
--- OUTSIDE RECORDS SUMMARY | 2022-12-14 13:23 | XMS_ITS | Continuity of Care Document ---
Author Name Unknown Organization [facility] Hans lt Address [address] [place] [address]- Care Team Providers Care Claims Sorter Name Role Phone Lobo Paulino MD Primary Care Physician [phone] Encounter [facility] [place] [place] Date(s): 04/27/19 - 05/04/19 [facility] Adult [address] [place] [address]- [facility] Attending Physician: Lobo Paulino MD Allergies, Adverse Reactions, Alerts Substance Reaction Severity Status NKA Active Immunizations Given and Recorded Vaccine Date Status Refusal Reason influenza virus vaccine, inactivated 1 04/15/19 Gi jillian Not Given Vaccine Date Status Refusal Reason tetanus-diphtheria toxoids (Td) 04/15/19 Not Given Parent Or Guardian Refuses 1Result Comment: [facility]-[id number] Medications aspirin 81 mg oral delayed release tablet 81 mg, By Mouth, Daily, # 30 tablet, Refills 11, Tot. Refills 11, Maintenance, 05/04/19 17:22:00 EST, Route to Pharmacy Electronically, [facility], 179.5, cm, 04/27/19 9:59:00 EST, Height, 84.3, kg, 03/31/19 1:34:00 EST, Dry W... Start Date: 05/04/19 Status: Ordered atorvastatin 10 mg oral tablet 1 tablet = 10 mg, By Mouth, Daily at bedtime, # 30 tablet, 0 Refills, Maintenance, 04/06/19 11:27:00 EST, Tablet, [facility], 183, cm, 04/06/19 5:31:00 EST, Height, 84.3, kg, 03/31/19 1:34:00 EST, Dry Weight Start Date: 04/06/19 Status: Ordered CVS PAIN RELIEF 500 MG TABLET CVS PAIN RELIEF 500 MG TABLET, 0 Refills, Maintenance, 04/15/19 13:13:00 EST Start Date: 04/15/19 Status: Ordered Hibiclens 4% soap 1 applicator, Topically, Once, # 240 mL, 1 Refills, Soft Stop, 04/15/19 13:45:00 EST, [facility] #[id number], 1 applicator Topically Once, 179.5, cm, 04/15/19 13:12:00 EST, Height Start Date: 04/15/19 Status: Ordered lisinopril 10 mg oral tablet 10 mg, 1, tablet, By Mouth, Daily, # 30 tablet, Refills 5, Tot. Refills 5, Maintenance, 05/04/19 17:23:00 EST, Route to Pharmacy Electronically, [facility], 179.5, cm, 04/27/19 9:59:00 EST, Height, 84.3, kg, 03/31/19 1:34:00 E... Start Date: 05/04/19 Status: Ordered melatonin 5 mg oral tablet 1 tablet = 5 mg, By Mouth, Daily at bedtime, PRN for insomnia, # 60 tablet, 0 Refills, Acute 05/13/19 14:46:00 EST, 04/15/19 14:46:00 EST, Tablet, [facility] #[id number], 179.5, cm, 04/15/19 13:12:00 EST, Height Start Date: 04/15/19 Stop Date: 05/13/19 Status: Ordered methadone 10 mg oral tablet [...] 05/04/19 17:23:00 EST, Route to Pharmacy Electronically, [facility], 179.5, cm, 04/27/19 9:59:00 EST, Height, 84.3, kg, 03/31/19 1:34:00 E... Start Date: 05/04/19 Status: Ordered Narcan 4 mg/0.1 mL nasal spray = 4 mg, Nares, Both, Once, # 2 each, 0 Refills, Soft Stop, 04/15/19 13:46:00 EST, [facility]/pharm[facility] #[id number], 179.5, cm, 04/15/19 13:12:00 EST, Height Start Date: 04/15/19 Status: Ordered nicotine 21 mg/24 hr transdermal film, extended release 1 patch, Topically, Daily, for 14 days, # 14 patch, 2 Refills, Acute 06/08/19 10:23:00 EST, 04/27/19 10:23:00 EST, Patch, [facility], 1 patch Topically Daily,x14 days, 179.5,cm, 04/27/19 9:59:00 EST, Height, 84.3, kg, ... Start Date: 04/27/19 Stop Date: 06/08/19 Status: Ordered Problem List Condition Effective Dates Status Health Status Inform ant Acute systolic heart failure(Confirmed) Active Heroin overdose(Confirmed) Active Hilar lymphadenopathy(Confirmed) Active Insomnia(Confirmed) Active Tobacco abuse(Confirmed) Active Wound of skin(Confirmed) Active Vital Signs Most recent to oldest [Reference Range]: 1 Height 179.5 cm (04/27/19 9:59 AM) Weight 81.4 kg (04/27/19 9:59 AM) Oxygen Saturation [94-100 %] 98 % (04/27/19 9:59 AM) Pulse Rate [55-90 bpm] 64 bpm (04/27/19 9:59 AM) Body Mass Index [18.5-24.99] 25.26 *H* (04/27/19 9:59 AM) Blood Pressure [90-138/55-84 mm Hg] 110/ 70mm Hg (04/27/19 9:59 AM) Temperature [96.8-100.4 DegF] 97.8 DegF (04/27/19 9:59 AM) Mode of Delivery (Oxygen) Room air (04/27/19 9:59 AM) Blood pressure sites Arm, right (04/27/19 9:59 AM) Temperature Route Oral (04/27/19 9:59 AM) Weight Obtained Via Standing scale (04/27/19 9:59 AM) Social History Social History Type Response Smoking Status 10 or more cigarette s (1/2 pack or more)/day in last 30 days entered on: 03/31/19 Sex
--- OUTSIDE RECORDS SUMMARY | 2022-12-14 13:23 | XMS_ITS | Continuity of Care Document ---
Author Name Unknown Organization [facility] ter Address [address] [place] [address]- Care Team Providers Care Veterinary Technician Name Role Phone Lora GÓMEZ, Lobo Sharp Primary Care Physician [phone] Encounter [facility] [place] Date(s): 05/07/19 - 05/07/[address] [address]- [facility] Attending Physician: Froilan WILLIAM, Shobha Allergies, Adverse Reactions, Alerts Substance Reaction Severity Status NKA Active Immunizations Given and Recorded Vaccine Date Status Refusal Reason tetanus/diphtheria/pertussis, acel(Tdap) 05/07/19 Given influenza virus vaccine, inactivated 1 04/15/19 Gi jillian Not Given Vaccine Date Status Refusal Reason tetanus-diphtheria toxoids (Td) 04/15/19 Not Given Parent Or Guardian Refuses 1Result Comment: [facility]-[id number] Medications aspirin 81 mg oral delayed release tablet 81 mg, By Mouth, Daily, # 30 tablet, Refills 11, Tot. Refills 11, Maintenance, 05/04/19 17:22:00 EST, Route to Pharmacy Electronically, [facility], 179.5, cm, 04/27/19 9:59:00 EST, Height, 84.3, kg, 03/31/19 1:34:00 EST, Dry W... Start Date: 05/04/19 Status: Ordered atorvastatin 10 mg oral tablet 1 tablet = 10 mg, By Mouth, Daily at bedtime, # 30 tablet, 0 Refills, Maintenance, 04/06/19 11:27:00 EST, Tablet, [facility], 183, cm, 04/06/19 5:31:00 EST, Height, 84.3, kg, 03/31/19 1:34:00 EST, Dry Weight Start Date: 04/06/19 Status: Ordered CVS PAIN RELIEF 500 MG TABLET CVS PAIN RELIEF 500 MG TABLET, 0 Refills, Maintenance, 04/15/19 13:13:00 EST Start Date: 04/15/19 Status: Ordered Hibiclens 4% soap 1 applicator, Topically, Once, # 240 mL, 1 Refills, Soft Stop, 04/15/19 13:45:00 EST, [facility]/pharmacy #[id number], 1 applicator Topically Once, 179.5, cm, 04/15/19 13:12:00 EST, Height Start Date: 04/15/19 Status: Ordered lisinopril 10 mg oral tablet 10 mg, 1, tablet, By Mouth, Daily, # 30 tablet, Refills 5, Tot. Refills 5, Maintenance, 05/04/19 17:23:00 EST, Route to Pharmacy Electronically, [facility], 179.5, cm, 04/27/19 9:59:00 EST, Height, 84.3, kg, 03/31/19 1:34:00 E... Start Date: 05/04/19 Status: Ordered melatonin 5 mg oral tablet 1 tablet = 5 mg, By Mouth, Daily at bedtime, PRN for insomnia, # 60 tablet, 0 Refills, Acute 05/13/19 14:46:00 EST, 04/15/19 14:46:00 EST, Tablet, [facility]/pharmacy #[id number], 179.5, cm, 04/15/19 13:12:00 EST, [...] 05/04/19 17:23:00 EST, Route to Pharmacy Electronically, [facility], 179.5, cm, 04/27/19 9:59:00 EST, Height, 84.3, kg, 03/31/19 1:34:00 E... Start Date: 05/04/19 Status: Ordered Narcan 4 mg/0.1 mL nasal spray = 4 mg, Nares, Both, Once, # 2 each, 0 Refills, Soft Stop, 04/15/19 13:46:00 EST, [facility]/pharmacy #[id number], 179.5, cm, 04/15/19 13:12:00 EST, Height Start Date: 04/15/19 Status: Ordered nicotine 21 mg/24 hr transdermal film, extended release 1 patch, Topically, Daily, for 14 days, # 14 patch, 2 Refills, Acute 06/08/19 10:23:00 EST, 04/27/19 10:23:00 EST, Patch, [facility], 1 patch Topically [...]
[2022-12-14] MEDS: Tetracaine HCl/PF 0.5% Oph Sol 4 ML DROPS 1 DROP EYE-RIGHT (13:24)
[2022-12-14] MEDS: Fluorescein Sodium STRIP 1 STRIP EYE-RIGHT (13:24)
--- OUTSIDE RECORDS SUMMARY | 2022-12-14 13:24 | XMS_ITS | Continuity of Care Document ---
Author Name Unknown Organization [facility] ter Address [address] [place] [id number]- Care Team Providers Care Career Services Representative Name Role Phone Not on Staff, PCP Primary Care Physician Unavail able Encounter [facility] Date(s): 03/30/19 - 04/07/[address] [address]- [facility] Encounter Diagnosis Altered mental status(Final) - 03/30/19 Discharge Disposition: A-D/C Home Attending Physician: Harjinder GÓMEZ, Allen Admitting Physician: Bety Myles MD Referring Physician: Not on Staff, Referring MD Allergies, Adverse Reactions, Alerts Substance Reaction Severity Status NKA Active Medications aspirin 81 mg oral delayed release tablet 81 mg, By Mouth, Daily, # 30 tablet, Refills 0, Tot. Refills 0, Maintenance, 04/06/19 11:27:00 EST,Route to Pharmacy Electronically, [facility], 183, cm, 04/06/19 5:31:00 EST, Height, 84.3, kg, 03/31/19 1:34:00 EST, Dry Weight Start Date: 04/06/19 Status: Ordered atorvastatin 10 mg oral tablet 1 tablet = 10 mg, By Mouth, Daily at bedtime, # 30 tablet, 0 Refills, Maintenance, 04/06/19 11:27:00 EST, Tablet, [facility], 183, cm, 04/06/19 5:31:00 EST, Height, 84.3, kg, 03/31/19 1:34:00 EST, Dry Weight Start Date: 04/06/19 Status: Ordered lisinopril 10 mg oral tablet 10 mg, 1, tablet, By Mouth, Daily, # 30 tablet, Refills 0, Tot. Refills 0, Maintenance, 04/06/19 11:27:00 EST, Route to Pharmacy Electronically, [facility], 183, cm, 04/06/19 5:31:00 EST, Height, 84.3, kg, 03/31/19 1:34:00 EST, Dry Weight Start Date: 04/06/19 Status: Ordered magnesium oxide 400 mg oral tablet 1 tablet = 400 mg, By Mouth, 2 times a day, for 7 days, # 14 tablet, 0 Refills, Acute 04/13/19 11:27:00 EST, 04/06/19 11:27:00 EST, Tablet, [facility], 183, cm, 04/06/19 5:31:00 EST, Height, 84.3, kg, 03/31/19 1:34:00 EST, Dry Weight Start Date: 04/06/19 Stop Date: 04/13/19 Status: Ordered methadone 10 mg oral tablet 3 tablet = 30 mg, By Mouth, Daily, 0 Refills, Maintenance, 04/06/19 11:28:00 EST, Tablet, Partial fill upon patient request Start Date: 04/06/19 Status: Ordered metoprolol 50 mg oral tablet, extended release 50 mg, 1, tablet, By Mouth, Daily, # 30 tablet, Refills 0, Tot. Refills 0, Maintenance, 04/06/19 11:27:00 EST, Route to Pharmacy Electronically, [facility], 183, cm, 04/06/19 5:31:00 EST, Height, 84.3, kg, 03/31/19 1:34:00 EST, Dry Weight Start Date: 04/06/19 Status: Ordered Results Radiology Reports * Exam Date Time Procedure Performing Provider Status 03/31/19 12:50 AM Chest Portable Juan Tovar; Au th (Verified) Notes: (Chest Portable) Reason For Exam: pulmonary edema f/u/evolution;Other: RESULT: Chest Portable Chest Portable 03/31/2019 Reason: Other:; pulmonary edema f u evolution; Clinical Question(s): Pulmonary Edema COMPARISON: 03/30/2019 FINDINGS: LINES AND TUBES: ET tube and nasogastric tube in place stable in position. LUNGS AND PLEURA: Stable pulmonary edema with cephalization of blood flow. Stable left lower lobe atelectasis. No pleural effusion. No pneumothorax. HEART, MEDIASTINUM AND ABDELRAHMAN: Heart is normal in size. Normal mediastinal and hilar contour. BONES AND SOFT TISSUES: No acute abnormality. IMPRESSION: Stable mild pulmonary edema and left lower lobe atelectasis or infiltrate. WSN: [id number] Dictated By: Almita Goetz MD, I Dictated Date/Time: 03/31/19 3:21 pm Reviewed By: Almita Goetz MD, I Signed By: Almita Goetz MD, I Signed Date/Time: 03/31/19 3:21 pm Transcribed By: ANDRES Transcribed Date/Time: 03/31/19 3:15 pm * Exam Date Time Procedure Performing Provider Status 03/30/19 11:11 PM Chest Portable Isabell Ruiz; Karyna (Verified) Notes: (Chest Portable) Reason For Exam: Tube Placement RESULT: Chest Portable Chest Portable AP upright at 2250 hours Reason: Tube Placement; Clinical Question(s): Tube Placement COMPARISON: 03/30/2019 FINDINGS: LINES AND TUBES: ET tube terminates 4.4 cm above rudolph. Enteric tube tip and sidehole course beyond GE junction in good position. LUNGS AND PLEURA: Unchanged moderate perihilar interstitial opacities with mild airspace opacities of the medial right lower lung. No pleural effusion. No pneumothorax. HEART, MEDIASTINUM AND ABDELRAHMAN: Unchanged. BONES AND SOFT TISSUES: No acute abnormality. IMPRESSION: 1. Support lines and tubes appear in good position as above. 2. Unchanged moderate pulmonary edema pattern. WSN: [id number] Dictated By: Jonathan Geronimo DO Dictated Date/Time: 03/30/19 11:24 p Reviewed By: Jonathan Geronimo DO Signed By: Jonathan Geronimo DO Signed Date/Time: 03/30/19 11:24 pm Transcribed By: ANDRES Transcribed Date/Time: 03/30/19 11:23 pm * Exam Date Time Procedure Performing Provider Status 03/30/19 8:41 PM Chest Portable Lilo Riggs (Verified) Notes: (Chest Portable) Reason For Exam: Shortness of Breath RESULT: Chest Portable Chest Portable AP upright at 2021 hours Reason: Shortness of Breath; Clinical Question(s): CHF COMPARISON: 03/30/2019 at 1931 hours FINDINGS: LINES AND TUBES: ET tube terminates 2.5 cm above rudolph. Enteric tube tip courses off lower margin of the radiograph at GE junction. LUNGS AND PLEURA: Moderate perihilar interstitial opacities with mild airspace opacities of the right lower lung. No pleural effusion. No pneumothorax. HEART, MEDIASTINUM AND ABDELRAHMAN: Heart is normal in size. Normal mediastinal and hilar contour. BONES AND SOFT TISSUES: No acute abnormality. IMPRESSION: 1. ET tube terminates 2.5 cm above rudolph and enteric tube courses off lower margin of radiograph, leading end not included. 2. Moderate pulmonary edema pattern. WSN: [id number] Dictated By: Jonathan Geronimo DO Dictated Date/Time: 03/30/19 8:59 pm Reviewed By: Jonathan Geronimo DO Signed By: Jonathan Geronimo DO Signed Date/Time: 03/30/19 8:59 pm Transcribed By: ANDRES Transcribed Date/Time: 03/30/19 8:58 pm * Exam Date Time Procedure Performing Provider Status 03/30/19 7:53 PM Chest Portable Guilherme Young; Auth (V erified) Notes: (Chest Portable) Reason For Exam: Shortness of Breath RESULT: Chest Portable Chest Portable Reason: Shortness of Breath; Clinical Question(s): CHF COMPARISON: None. FINDINGS: LINES AND TUBES: None. LUNGS AND PLEURA: Clear lungs. Normal pulmonary vascularity. No pleural effusion. Only seen on one of the views are findings concerning for a small upper right lateral pneumothorax.This may represent a skinfold. HEART, MEDIASTINUM AND ABDELRAHMAN: Heart is normal in size. Normal mediastinal and hilar contour. BONES AND SOFT TISSUES: No acute abnormality. IMPRESSION: Findings concerning for a small right upper lung pneumothorax. Clinical correlation and follow-up is recommended. WSN: [id number] Dictated By: Tracy Grey MD Dictated Date/Time: 03/30/19 8:02 pm Reviewed By: Tracy Grey MD Signed By: Tracy Grey MD Signed Date/Time: 03/30/19 8:02 pm Transcribed By: ANDRES Transcribed Date/Time: 03/30/19 7:56 pm Vital Signs Most recent to oldest [Reference Range]: 1 2 3 Height 183 cm (04/07/19 11:30 AM) 183 cm (04/07/19 4:42 AM) 183 cm (04/06/19 8:29 PM) Weight 79.9 kg (04/07/19 4:42 AM) 80.4 kg (04/06/19 5:31 AM) 82.6 kg (04/05/19 4:48 AM) Oxygen Saturation [94-100 %] 97 % (04/07/19 11:30 AM) 96 % (04/07/19 4:42 AM) 98 % (04/06/19 8:29 PM) Pulse Rate [55-90 bpm] 52 bpm *L* (04/07/19 11:30 AM) 78 bpm (04/07/19 7:46 AM) 71 bpm (04/07/19 4:42 AM) Body Mass Index [18.5-24.99] 23.86 (04/07/19 4:42 AM) 24.01 (04/06/19 5:31 AM) 24.66 (04/05/19 4:48 AM) Blood Pressure [90-138/55-84 mm Hg] 118/57mm Hg (04/07/19 11:30 AM) 107/59mm Hg (04/07/19 7:46 AM) 107/59mm Hg (04/07/19 7:46 AM) Respiratory Rate [16-30 br/min] 18 br/min (04/07/19 11:30 AM) 16 br/min (04/07/19 8:46 AM) 18 br/min (04/07/19 4:42 AM) Temperature [96.8-100.4 DegF] 98.0 DegF (04/07/19 11:30 AM) 97.7 DegF (04/07/19 4:42 AM) 97.3 DegF (04/06/19 8:29 PM) Liters per Minute 40 L/min (03/31/19 1:34 AM) Mode of Delivery (Oxygen) Room air (04/07/19 11:30 AM) Room air (04/07/19 4:42 AM) Room air (04/06/19 8:29 PM) Blood pressure sites Arm, left (04/07/19 11:30 AM) Arm, left (04/07/19 4:42 AM) Arm, right (04/06/19 8:29 PM) Temperature Route Oral (04/07/19 11:30 AM) Oral (04/07/19 4:42 AM) Oral (04/06/19 8:29 PM) Dry Weight 84.3 kg (03/31/19 1:34 AM) 90 kg (03/30/19 9:01 PM) Weight Obtained Via Bed scale (04/07/19 4:42 AM) Bed scale (04/06/19 5:31 AM) Bed scale (04/05/19 4:48 AM) Dry Weight Obtained Via Bed scale (03/31/19 1:34 AM) Sensory deficits None (03/31/19 1:34 AM) Mobility assistance Total assistance (03/31/19 5:20 AM) Independent (03/31/19 1:34 AM) Social History Social History Type Response Smoking Status 10 or more cigarette s (1/2 pack or more)/day in last 30 days entered on: 03/31/19 Sex
--- OUTSIDE RECORDS SUMMARY | 2022-12-14 13:24 | XMS_ITS | Continuity of Care Document ---
Author Name Unknown Organization [facility] [place] Hans lt Address [address] [place] [address]- Care Team Providers Care General Maintenance Mechanic Name Role Phone Lora GÓMEZ, Lobo Sharp Primary Care Physician Encounter [id number] Date(s): 06/21/20 - 07/21/20 [facility] [place] Adult [address] [place] [address]- Attending Physician: Tracy Crawley Admitting Physician: Tracy [...] 1Result Comment: [facility]-[id number] Medications aspirin 81 mg oral delayed release tablet 81 mg, By Mouth, Daily, # 100 tablet, Refills 3, Tot. Refills 3, Maintenance, 06/14/20 17:14:00 EST, Route to Pharmacy Electronically, [facility], 179.5, cm, 09/23/19 12:23:00 EDT, Height, [...] 11/15/19 12:58:00 EDT, Route to Pharmacy Electronically, [facility], 179.5, cm, 09/23/2011:23:00 EDT, Height, 84.3, [...] 11/15/19 12:58:00 EDT, Route to Pharmacy Electronically, [facility], 179.5, cm, 09/23/2011:23:00 EDT, Height, 84.3, [...]
--- OUTSIDE RECORDS SUMMARY | 2022-12-14 13:24 | XMS_ITS | Continuity of Care Document ---
Author Name Unknown Organization [facility] Hans lt Address [address] [place] [address]- Care Team Providers Care Pump Machine Operator Name Role Phone Not on Staff, PCP Primary Care Physician Unavail able [place] [facility] 04/15/19 - 04/25/19 [facility] Adult [address] [place] [address]- [facility] Attending Physician: Admtr, Ar8 Admitting Physician: Admtr, Ar8 Referring Physician: Admtr, Ar8 Allergies, Adverse Reactions, Alerts Substance Reaction Severity Status NKA Active Medications aspirin 81 mg oral delayed release tablet 81 mg, By Mouth, Daily, # 30 tablet, Refills 0, Tot. Refills 0, Maintenance, 04/06/19 11:27:00 EST,Route to Pharmacy Electronically, [facility], 183, cm, 04/06/19 5:31:00 EST, Height, 84.3, kg, 03/31/19 1:34:00 EST, Dry Weight Start Date: 04/06/19 Status: Ordered atorvastatin 10 mg oral tablet 1 tablet = 10 mg, By Mouth, Daily at bedtime, # 30 tablet, 0 Refills, Maintenance, 04/06/19 11:27:00 EST, Tablet, [facility], 183, cm, 04/06/19 5:31:00 EST, Height, 84.3, kg, 03/31/19 1:34:00 EST, Dry Weight Start Date: 04/06/19 Status: Ordered lisinopril 10 mg oral tablet 10 mg, 1, tablet, By Mouth, Daily, # 30 tablet, Refills 0, Tot. Refills 0, Maintenance, 04/06/19 11:27:00 EST, Route to Pharmacy Electronically, [facility], 183, cm, 04/06/19 5:31:00 EST, Height, 84.3, kg, 03/31/19 1:34:00 EST, Dry Weight Start Date: 04/06/19 Status: Ordered methadone 10 mg oral tablet 3 tablet = 30 mg, By Mouth, Daily, 0 Refills, Maintenance, 04/06/19 11:28:00 EST, Tablet, Partial fill upon patient request Start Date: 04/06/19 Status: Ordered metoprolol 50 mg oral tablet, extended release 50 mg, 1, tablet, By Mouth, Daily, # 30 tablet, Refills 0, Tot. Refills 0, Maintenance, 04/06/19 11:27:00 EST, Route to Pharmacy Electronically, [facility], 183, cm, 04/06/19 5:31:00 EST, Height, 84.3, kg, 03/31/19 1:34:00 EST, Dry Weight Start Date: 04/06/19 Status: Ordered Social History Social History Type Response Smoking Status 10 or more cigarette s (1/2 pack or more)/day in last 30 days entered on: 03/31/19 Sex
--- OUTSIDE RECORDS SUMMARY | 2022-12-14 13:24 | XMS_ITS | Continuity of Care Document ---
Author Name Unknown Organization [facility] Hans lt Address [address] [place] [address]- Care Team Providers Care Proposal Review Analyst Name Role Phone Lora GÓMEZ, Lobo Sharp Primary Care Physician Encounter [facility] Date(s): 04/28/20 - 05/28/20 [facility] Adult [address] [place] [address]- Attending Physician: Tracy Crawley Admitting Physician: Tracy Crawley Referring Physician: AdmtrTracy Allergies, Adverse Reactions, Alerts Substance Reaction Severity Status NKA Active Immunizations Given and Recorded Vaccine Date Status Refusal Reason tetanus/diphtheria/pertussis, acel(Tdap) 05/07/19 Given influenza virus vaccine, inactivated 1 04/15/19 Gi jillian Not Given Vaccine Date Status Refusal Reason tetanus-diphtheria toxoids (Td) 04/15/19 Not Given Parent Or Guardian Refuses 1Result Comment: [facility]-[id number] Medications aspirin 81 mg oral delayed release tablet 81 mg, By Mouth, Daily, # 30 tablet, Refills 11, Tot. Refills 11, Maintenance, 05/04/19 17:22:00 EST, Route to Pharmacy Electronically, [facility], 179.5, cm, 04/27/19 9:59:00 EST, Height, 84.3, kg, 03/31/19 1:34:00 EST, Dry W... Start Date: 05/04/19 Status: Ordered atorvastatin 10 mg oral tablet 1 tablet = 10 mg, By Mouth, Daily at bedtime, # 30 tablet, 0 Refills, Maintenance, 04/06/19 11:27:00 EST, Tablet, [facility], 183, cm, 04/06/19 5:31:00 EST, [...] 11/15/19 12:58:00 EDT, Route to Pharmacy Electronically, [facility], 179.5, cm, 09/23/2011:23:00 EDT, [...] 11/15/19 12:58:00 EDT, Route to Pharmacy Electronically, [facility], 179.5, cm, 09/23/2011:23:00 EDT, [...]
--- OUTSIDE RECORDS SUMMARY | 2022-12-14 13:24 | XMS_ITS | Continuity of Care Document ---
Author Name Unknown Organization [facility] Hans lt Address [address] [place] [address]- Care Team Providers Care Toll Bridge Operator Name Role Phone Lora GÓMEZ, Lobo Sharp Primary Care Physician Encounter [facility] Date(s): 06/13/20 - 07/13/20 [facility] Adult [address] [place] [address]- Allergies, Adverse Reactions, Alerts Substance Reaction Severity Status NKA Active Immunizations Given and Recorded Vaccine Date Status Refusal Reason tetanus/diphtheria/pertussis, acel(Tdap) 05/07/19 Given influenza virus vaccine, inactivated 1 04/15/19 Gi jillian Not Given Vaccine Date Status Refusal Reason tetanus-diphtheria toxoids (Td) 04/15/19 Not Given Parent Or Guardian Refuses 1Result Comment: [facility]-[id number] Medications aspirin 81 mg oral delayed release tablet 81 mg, By Mouth, Daily, # 100 tablet, Refills 3, Tot. Refills 3, Maintenance, 06/14/20 17:14:00 EST, Route to Pharmacy Electronically, [facility], 179.5, cm, 09/23/19 12:23:00 EDT, Height, 84.3, kg, 03/31/19 1:34:00 EST, Dry Weight Start Date: 06/14/20 Status: Ordered atorvastatin 10 mg oral tablet 1 tablet = 10 mg, By Mouth, Daily at bedtime, # 30 tablet, 0 Refills, Maintenance, 04/06/19 11:27:00 EST, Tablet, [facility], 183, cm, 04/06/19 5:31:00 EST, [...] 11/15/19 12:58:00 EDT, Route to Pharmacy Electronically, [facility], 179.5, cm, 09/23/2011:23:00 EDT, [...] 11/15/19 12:58:00 EDT, Route to Pharmacy Electronically, [facility], 179.5, cm, 09/23/2011:23:00 EDT, [...]
--- OUTSIDE RECORDS SUMMARY | 2022-12-14 13:24 | XMS_ITS | Continuity of Care Document ---
Author Name Unknown Organization [facility] ter Address [address] [place] [address]- Care Team Providers Care Experimental Electronics Developer Name Role Phone Lobo Paulino MD Primary Care Physician Encounter [facility] [place] Date(s): 05/07/19 - 05/07/[address] [address]- [facility] Attending Physician: Lobo Paulino MD Allergies, Adverse Reactions, Alerts Substance Reaction Severity Status NKA Active Immunizations Given and Recorded Vaccine Date Status Refusal Reason tetanus/diphtheria/pertussis, acel(Tdap) 05/07/19 Given influenza virus vaccine, inactivated 1 04/15/19 Gi jillian Not Given Vaccine Date Status Refusal Reason tetanus-diphtheria toxoids (Td) 04/15/19 Not Given Parent Or Guardian Refuses 1Result Comment: [facility]-[id number] Medications aspirin 81 mg oral delayed release tablet 81 mg, By Mouth, Daily, # 30 tablet, Refills 11, Tot. Refills 11, Maintenance, 05/04/19 17:22:00 EST, Route to Pharmacy Electronically, [facility], 179.5, cm, 04/27/19 9:59:00 EST, Height, 84.3, kg, 03/31/19 1:34:00 EST, Dry W... Start Date: 05/04/19 Status: Ordered atorvastatin 10 mg oral tablet 1 tablet = 10 mg, By Mouth, Daily at bedtime, # 30 tablet, 0 Refills, Maintenance, 04/06/19 11:27:00 EST, Tablet, [facility], 183, cm, 04/06/19 5:31:00 EST, Height, 84.3, kg, 03/31/19 1:34:00 EST, Dry Weight Start Date: 04/06/19 Status: Ordered CVS PAIN RELIEF 500 MG TABLET CVS PAIN RELIEF 500 MG TABLET, 0 Refills, Maintenance, 04/15/19 13:13:00 EST Start Date: 04/15/19 Status: Ordered Hibiclens 4% soap 1 applicator, Topically, Once, # 240 mL, 1 Refills, Soft Stop, 04/15/19 13:45:00 EST, [id number], 1 applicator Topically Once, 179.5, cm, 04/15/19 13:12:00 EST, Height Start Date: 04/15/19 Status: Ordered lisinopril 10 mg oral tablet 10 mg, 1, tablet, By Mouth, Daily, # 30 tablet, Refills 5, Tot. Refills 5, Maintenance, 05/04/19 17:23:00 EST, Route to Pharmacy Electronically, [facility], 179.5, cm, 04/27/19 9:59:00 EST, Height, 84.3, kg, 03/31/19 1:34:00 E... Start Date: 05/04/19 Status: Ordered melatonin 5 mg oral tablet 1 tablet = 5 mg, By Mouth, Daily at bedtime, PRN for insomnia, # 60 tablet, 0 Refills, Acute 05/13/19 14:46:00 EST, 04/15/19 14:46:00 EST, Tablet, [facility] #[id number], 179.5, cm, 04/15/19 [...] 05/04/19 17:23:00 EST, Route to Pharmacy Electronically, [facility], 179.5, cm, 04/27/19 9:59:00 [...] 06/08/19 10:23:00 EST, 04/27/19 10:23:00 EST, Patch, [facility], 1 patch Topically Daily,x14 [...]
--- OUTSIDE RECORDS SUMMARY | 2022-12-14 13:24 | XMS_ITS | Continuity of Care Document ---
Author Name Unknown Organization [facility] Hans lt Address [address] [place] [address]- Care Team Providers Care Stock Order Lister Name Role Phone Lora GÓMEZ, Lobo Sharp Primary Care Physician Encounter [facility] Date(s): 05/07/19 - 05/17/19 [facility] Adult [address] [place] [address]- [facility] Attending Physician: Tracy Crawley Admitting Physician: Tracy [...] Refuses 1Result Comment: [facility]-[id number] Medications aspirin 81 mg oral delayed release tablet 81 mg, By Mouth, Daily, # 30 tablet, Refills 11, Tot. Refills 11, Maintenance, 05/04/19 17:22:00 EST, Route to Pharmacy Electronically, [facility], 179.5, cm, 04/27/19 9:59:00 EST, Height, 84.3, kg, 03/31/19 1:34:00 EST, Dry W... Start Date: 05/04/19 Status: Ordered atorvastatin 10 mg oral tablet 1 tablet = 10 mg, By Mouth, Daily at bedtime, # 30 tablet, 0 Refills, Maintenance, 04/06/19 11:27:00 EST, Tablet, [facility], 183, cm, 04/06/19 [...] 05/04/19 17:23:00 EST, Route to Pharmacy Electronically, [facility], 179.5, cm, 04/27/19 [...] 05/04/19 17:23:00 EST, Route to Pharmacy Electronically, [facility], 179.5, cm, 04/27/19 9:59:00 EST, Height, 84.3, kg, 03/31/19 1:34:00 E... Start Date: 05/04/19 Status: Ordered Narcan 4 mg/0.1 mL nasal spray = 4 mg, Nares, Both, Once, # 2 each, 0 Refills, Soft Stop, 04/15/19 13:46:00 EST, [facility]/pharmacy #[id number], 179.5, cm, 04/15/19 13:12:00 EST, Height Start Date: 04/15/19 Status: Ordered nicotine 21 mg/24 hr transdermal film, extended release 1 patch, Topically, Daily, for 14 days, # 14 patch, 2 Refills, Acute 06/08/19 10:23:00 EST, 04/27/19 10:23:00 EST, Patch, [facility], 1 patch Topically [...]
--- OUTSIDE RECORDS SUMMARY | 2022-12-14 13:24 | XMS_ITS | Continuity of Care Document ---
Author Name Unknown Organization [facility] Hans lt Address [address] [place] [address]- Care Team Providers Care Premix Concrete Batcher Name Role Phone Lobo Paulino MD Primary Care Physician Encounter [facility] [place] Date(s): 05/07/19 - 05/14/19 [facility] Adult [address] [place] [address]- [facility] Attending Physician: Lobo Paulino MD Allergies, Adverse Reactions, Alerts Substance Reaction Severity Status NKA Active Immunizations Given and Recorded Vaccine Date Status Refusal Reason tetanus/diphtheria/pertussis, acel(Tdap) 05/07/19 Given influenza virus vaccine, inactivated 1 04/15/19 Gi jillian Not Given Vaccine Date Status Refusal Reason tetanus-diphtheria toxoids (Td) 04/15/19 Not Given Parent Or Guardian Refuses 1Result Comment: [facility]-[id number] Medications aspirin 81 mg oral delayed release [...] 0 Refills, Maintenance, 04/06/19 11:27:00 EST, Tablet, [facility], 183, cm, 04/06/19 5:31:00 [...] 0 Refills, Soft Stop, 04/15/19 13:46:00 EST, [facility]/pharmacy #[id number], 179.5, cm, 04/15/19 13:12:00 EST, Height Start Date: 04/15/19 Status: Ordered nicotine 21 mg/24 hr transdermal film, extended release 1 patch, Topically, Daily, for 14 days, # 14 patch, 2 Refills, Acute 06/08/19 10:23:00 EST, 04/27/19 10:23:00 EST, Patch, [facility], 1 patch Topically [...] oldest [Reference Range]: 1 Height 179.5 cm (05/07/19 9:39 AM) Weight 83.6 kg (05/07/19 9:39 AM) Oxygen Saturation [94-100 %] 97 % (05/07/19 9:39 AM) Pulse Rate [55-90 bpm] 61 bpm (05/07/19 9:39 AM) Body Mass Index [18.5-24.99] 25.95 *H* (05/07/19 9:39 AM) Blood Pressure [90-138/55-84 mm Hg] 120/ 80mm Hg (05/07/19 9:39 AM) Temperature [96.8-100.4 DegF] 98.1 DegF (05/07/19 9:39 AM) Mode of Delivery (Oxygen) Room air (05/07/19 9:39 AM) Blood pressure sites Arm, right (05/07/19 9:39 AM) Temperature Route Oral (05/07/19 9:39 AM) Weight Obtained Via Standing scale (05/07/19 9:39 AM) Social History Social History Type Response Smoking Status 10 or more cigarette s (1/2 pack or more)/day in last 30 days entered on: 03/31/19 Sex
--- OUTSIDE RECORDS SUMMARY | 2022-12-14 13:24 | XMS_ITS | Continuity of Care Document ---
Author Name Unknown Organization [facility] Adult Address [address] [place] [address]- Care Team Providers Care District Supervisor Name Role Phone Lora GÓMEZ, Lobo Sharp Primary Care Physician [phone] Encounter [facility] [place]CT R [id number] Date(s): 04/09/19 - 04/19/19 [facility] Adult [address] [place] [address]- [facility] Attending Physician: Tracy Crawley Admitting Physician: Tracy Crawley Referring Physician: AdmTracy hightower Allergies, Adverse Reactions, Alerts Substance Reaction Severity Status NKA Active Immunizations Given and Recorded Vaccine Date Status Refusal Reason influenza virus vaccine, inactivated 1 04/15/19 Gi jillian Not Given Vaccine Date Status Refusal Reason tetanus-diphtheria toxoids (Td) 04/15/19 Not Given Parent Or Guardian Refuses 1Result Comment: [facility]-[id number] Medications aspirin 81 mg oral tablet 1 [...] 05/13/19 14:46:00 EST, 04/15/19 14:46:00 EST, Tablet, [id number], 179.5, cm, 04/15/19 13:12:00 EST, [...]
--- OUTSIDE RECORDS SUMMARY | 2022-12-14 13:24 | XMS_ITS | Continuity of Care Document ---
Author Name Unknown Organization [facility] [place] Hans lt Address [address] [place] [address]- Care Team Providers Care Fire Alarm Mechanic Name Role Phone Lobo Paulino MD [id number] 07[facility]21/20 [facility] [place] Adult [address] [place] [address]- Attending Physician: Lobo Paulino MD Allergies, Adverse Reactions, Alerts Substance Reaction Severity Status NKA Active Immunizations Given and Recorded Vaccine Date Status Refusal Reason tetanus/diphtheria/pertussis, acel(Tdap) 05/07/19 Given influenza virus vaccine, inactivated 1 04/15/19 Gi jillian Not Given Vaccine Date Status Refusal Reason tetanus-diphtheria toxoids (Td) 04/15/19 Not Given Parent Or Guardian Refuses 1Result Comment: [facility]-[id number] Medications aspirin 81 mg oral delayed release tablet 81 mg, By Mouth, Daily, # 100 tablet, Refills 3, Tot. Refills 3, Maintenance, 06/14/20 17:14:00 EST, Route to Pharmacy Electronically, [facility], 179.5, cm, 09/23/19 12:23:00 EDT, Height, 84.3, kg, 03/31/19 1:34:00 EST, Dry Weight Start Date: 06/14/20 Status: Ordered atorvastatin 10 mg oral tablet 1 tablet = 10 mg, By Mouth, Daily at bedtime, # 30 tablet, 0 Refills, Maintenance, 04/06/19 11:27:00 EST, Tablet, [facility], 183, cm, 04/06/19 5:31:00 [...] 11/15/19 12:58:00 EDT, Route to Pharmacy Electronically, [facility], 179.5, cm, 09/23/2011:23:00 EDT, Height, 84.3, [...] 11/15/19 12:58:00 EDT, Route to Pharmacy Electronically, [facility], 179.5, cm, 09/23/2011:23:00 EDT, Height, 84.3, [...]
--- OUTSIDE RECORDS SUMMARY | 2022-12-14 13:24 | XMS_ITS | Continuity of Care Document ---
Author Name Unknown Organization [facility] Hans lt Address [address] [place] [address]- Care Team Providers Care Manager Telemetry Name Role Phone Lora GÓMEZ, Lobo Sharp Primary Care Physician [phone] [id number] - 03/18/21 [facility] Adult [address] [place] [address]- Allergies, Adverse Reactions, Alerts Substance Reaction Severity Status NKA Active Immunizations Given and Recorded Vaccine Date Status Refusal Reason tetanus/diphtheria/pertussis, acel(Tdap) 05/07/19 Given influenza virus vaccine, inactivated 1 04/15/19 Gi jillian Not Given Vaccine Date Status Refusal Reason tetanus-diphtheria toxoids (Td) 04/15/19 Not Given Parent Or Guardian Refuses 1Result Comment: [facility]-[id number] Medications aspirin 81 mg oral delayed release tablet 81 mg, By Mouth, Daily, # 100 tablet, Refills 3, Tot. Refills 3, Maintenance, 06/14/20 17:14:00 EST, Route to Pharmacy Electronically, [facility], 179.5, cm, 09/23/19 12:23:00 EDT, Height, 84.3, kg, 03/31/19 1:34:00 EST, Dry Weight Start Date: 06/14/20 Status: Ordered atorvastatin 10 mg oral tablet 1 tablet = 10 mg, By Mouth, Daily at bedtime, # 30 tablet, 0 Refills, Maintenance, 04/06/19 11:27:00 EST, Tablet, [facility], 183, cm, 04/06/19 [...] 11/15/19 12:58:00 EDT, Route to Pharmacy Electronically, [facility], 179.5, cm, 09/23/2011:23:00 EDT, Height, [...] 11/15/19 12:58:00 EDT, Route to Pharmacy Electronically, [facility], 179.5, cm, 09/23/2011:23:00 EDT, Height, [...]
--- OUTSIDE RECORDS SUMMARY | 2022-12-14 13:24 | XMS_ITS | Continuity of Care Document ---
Author Name Unknown Organization [facility] Hans lt Address [address] [place] [address]- Care Team Providers Care Contract Recruiter Name Role Phone Lora GÓMZE, Lobo Sharp Primary Care Physician [phone] [place] [facility] Date(s): 04/14/19 - 05/15/19 [facility] Adult [address] [place] [address]- [facility] Attending Physician: Not on Staff, Attending MD Allergies, Adverse Reactions, Alerts Substance Reaction Severity Status NKA Active Immunizations Given and Recorded Vaccine Date Status Refusal Reason tetanus/diphtheria/pertussis, acel(Tdap) 05/07/19 Given influenza virus vaccine, inactivated 1 04/15/19 Gi jillian Not Given Vaccine Date Status Refusal Reason tetanus-diphtheria toxoids (Td) 04/15/19 Not Given Parent Or Guardian Refuses 1Result Comment: [facility]-[id number] Medications aspirin 81 mg oral delayed release tablet 81 mg, By Mouth, Daily, # 30 tablet, Refills 11, Tot. Refills 11, Maintenance, 05/04/19 17:22:00 EST, Route to Pharmacy Electronically, [facility], 179.5, cm, 04/27/19 9:59:00 EST, Height, 84.3, kg, 03/31/19 1:34:00 EST, Dry W... Start Date: 05/04/19 Status: Ordered atorvastatin 10 mg oral tablet 1 tablet = 10 mg, By Mouth, Daily at bedtime, # 30 tablet, 0 Refills, Maintenance, 04/06/19 11:27:00 EST, Tablet, [facility], 183, cm, 04/06/19 5:31:00 [...] 05/04/19 17:23:00 EST, Route to Pharmacy Electronically, [facility], 179.5, cm, [...] 05/04/19 17:23:00 EST, Route to Pharmacy Electronically, [facility], 179.5, cm, 04/27/19 9:59:00 EST, Height, 84.3, kg, 03/31/19 1:34:00 E... Start Date: 05/04/19 Status: Ordered Narcan 4 mg/0.1 mL nasal spray = 4 mg, Nares, Both, Once, # 2 each, 0 Refills, Soft Stop, 04/15/19 13:46:00 EST, [id number], 179.5, cm, 04/15/19 13:12:00 EST, Height Start Date: 04/15/19 Status: Ordered nicotine 21 mg/24 hr transdermal film, extended release 1 patch, Topically, Daily, for 14 days, # 14 patch, 2 Refills, Acute 06/08/19 10:23:00 EST, 04/27/19 10:23:00 EST, Patch, [facility], 1 patch [...] recent to oldest [Reference Range]: 1 Height 183 cm (04/15/19 12:48 PM) Weight 82.4 kg (04/15/19 12:48 PM) Oxygen Saturation [94-100 %] 98 % (04/15/19 12:48 PM) Pulse Rate [55-90 bpm] 68 bpm (04/15/19 12:48 PM) Body Mass Index [18.5-24.99] 24.61 (04/15/19 12:48 PM) Blood Pressure [90-138/55-84 mm Hg] 124/ 62mm Hg (04/15/19 12:48 PM) Respiratory Rate [16-30 br/min] 16 br/mi n (04/15/19 12:48 PM) Temperature [96.8-100.4 DegF] 97.7 DegF (04/15/19 12:48 PM) Mode of Delivery (Oxygen) Room air (04/15/19 12:48 PM) Blood pressure sites Arm, right (04/15/19 12:48 PM) Temperature Route Oral (04/15/19 12:48 PM) Weight Obtained Via Standing scale (04/15/19 12:48 PM) Social History Social History Type Response Smoking Status 10 or more cigarette s (1/2 pack or more)/day in last 30 days entered on: 03/31/19 Sex
--- OUTSIDE RECORDS SUMMARY | 2022-12-14 13:24 | XMS_ITS | Continuity of Care Document ---
Author Name Unknown Organization [facility] Hans lt Address [address] [place] [address]- Care Team Providers Care Stringing Machine Operator Name Role Phone Lora GÓMEZ, Lobo Sharp Primary Care Physician Encounter [facility] [place] Date(s): 09/23/19 - 09/30/19 [facility] Adult [address] [place] [address]- [facility] Attending Physician: Kalin GÓMEZ, Behzad Milian Allergies, Adverse Reactions, Alerts Substance Reaction Severity Status NKA Active Immunizations Given and Recorded Vaccine Date Status Refusal Reason tetanus/diphtheria/pertussis, acel(Tdap) 05/07/19 Given influenza virus vaccine, inactivated 1 04/15/19 Gi jillian Not Given Vaccine Date Status Refusal Reason tetanus-diphtheria toxoids (Td) 04/15/19 Not Given Parent Or Guardian Refuses 1Result Comment: [facility]-[id number] Medications aspirin 81 mg oral delayed release tablet 81 mg, By Mouth, Daily, # 30 tablet, Refills 11, Tot. Refills 11, Maintenance, 05/04/19 17:22:00 EST, Route to Pharmacy Electronically, [facility], 179.5, cm, 04/27/19 9:59:00 EST, Height, 84.3, kg, 03/31/19 1:34:00 EST, Dry W... Start Date: 05/04/19 Status: Ordered atorvastatin 10 mg oral tablet 1 tablet = 10 mg, By Mouth, Daily at bedtime, # 30 tablet, 0 Refills, Maintenance, 04/06/19 11:27:00 EST, Tablet, [facility], 183, cm, 04/06/19 5:31:00 EST, Height, 84.3, kg, 03/31/19 1:34:00 EST, Dry Weight Start Date: 04/06/19 Status: Ordered cephalexin monohydrate 500 mg oral capsule 1 capsule = 500 mg, By Mouth, 3 times a day, # 21 capsule, 0 Refills, Maintenance, 09/23/19 13:50:00 EDT, [facility], 179.5, cm, 09/23/19 12:23:00 EDT, Height, 84.3, kg, 191:34:00 EST, Dry Weight Start Date: 09/23/19 Status: Ordered chlorhexidine 4% topical liquid 1 application, Topically, Once, as directed, # 118 mL, 0 Refills, Soft Stop, 09/23/19 13:52:00 EDT,Liquid, [facility], 1 application Topically Once,Instr:as directed, 179.5, cm,09/23/19 12:23:00 EDT, Height, 84.3, kg, 03/31/19 1... Start Date: 09/23/19 Status: Ordered [facility] PAIN RELIEF 500 MG TABLET [facility] PAIN RELIEF 500 MG TABLET, 0 Refills, Maintenance, 04/15/19 13:13:00 EST Start Date: 04/15/19 Status: Ordered lisinopril 10 mg oral tablet 10 mg, 1, tablet, By Mouth, Daily, # 30 tablet, Refills 5, Tot. Refills 5, Maintenance, 05/04/19 17:23:00 EST, Route to Pharmacy Electronically, [facility], 179.5, cm, 04/27/19 [...] 05/04/19 17:23:00 EST, Route to Pharmacy Electronically, [facility], 179.5, cm, 04/27/19 9:59:00 EST, Height, 84.3, kg, 03/31/19 1:34:00 E... Start Date: 05/04/19 Status: Ordered Narcan 4 mg/0.1 mL nasal spray = 4 mg, Nares, Both, Once, # 2 each, 0 Refills, Soft Stop, 04/15/19 13:46:00 EST, [id number], 179.5, cm, 04/15/19 13:12:00 EST, Height Start Date: 04/15/19 Status: Ordered Problem List Condition Effective Dates Status Health Status Inform ant Acute systolic heart failure(Confirmed) Active Heroin overdose(Confirmed) Active Hilar lymphadenopathy(Confirmed) Active Insomnia(Confirmed) Active Opioid dependence, in remission(Confirmed) Active Tobacco abuse(Confirmed) Active Wound of skin(Confirmed) Active Vital Signs Most recent to oldest [Reference Range]: 1 Height 179.5 cm (09/23/19 12:23 PM) Social History Social History Type Response Smoking Status 10 or more cigarette s (1/2 pack or more)/day in last 30 days entered on: 03/31/19 Sex
--- OUTSIDE RECORDS SUMMARY | 2022-12-14 13:24 | XMS_ITS | Continuity of Care Document ---
Author Name Unknown Organization [facility] Address [address] [address]- Care Team Providers Care Administration Manager Name Role Phone Lora GÓMEZ, Lobo Sharp Primary Care Physician Encounter [facility] [place] ACCT R [id number] Date(s): 05/20/19 - 05/30/19 [facility] [address] [address]- [facility] Attending Physician: Tracy Crawley Admitting Physician: Tracy Crawley Referring Physician: AdmtrTracy Allergies, Adverse Reactions, Alerts Substance Reaction Severity Status NKA Active Immunizations Given and Recorded Vaccine Date Status Refusal Reason tetanus/diphtheria/pertussis, acel(Tdap) 05/07/19 Given influenza virus vaccine, inactivated 1 04/15/19 Gi jillian Not Given Vaccine Date Status Refusal Reason tetanus-diphtheria toxoids (Td) 04/15/19 Not Given Parent Or Guardian Refuses 1Result Comment: [facility]-[id number] Medications aspirin 81 mg oral delayed release tablet 81 mg, By Mouth, Daily, # 30 tablet, Refills 11, Tot. Refills 11, Maintenance, 05/04/19 17:22:00 EST, Route to Pharmacy Electronically, [facility], 179.5, cm, 04/27/19 9:59:00 EST, Height, 84.3, kg, 03/31/19 1:34:00 EST, Dry W... Start Date: 05/04/19 Status: Ordered atorvastatin 10 mg oral tablet 1 tablet = 10 mg, By Mouth, Daily at bedtime, # 30 tablet, 0 Refills, Maintenance, 04/06/19 11:27:00 EST, Tablet, [facility], 183, cm, 04/06/19 5:31:00 [...] 05/04/19 17:23:00 EST, Route to Pharmacy Electronically, [facility], 179.5, cm, 04/27/19 [...] 05/04/19 17:23:00 EST, Route to Pharmacy Electronically, [facility], 179.5, cm, 04/27/19 9:59:00 EST, Height, 84.3, kg, 03/31/19 1:34:00 E... Start Date: 05/04/19 Status: Ordered Narcan 4 mg/0.1 mL nasal spray = 4 mg, Nares, Both, Once, # 2 each, 0 Refills, Soft Stop, 04/15/19 13:46:00 EST, [facility][id number], 179.5, cm, 04/15/19 13:12:00 EST, Height Start Date: 04/15/19 Status: Ordered nicotine 21 mg/24 hr transdermal film, extended release 1 patch, Topically, Daily, for 14 days, # 14 patch, 2 Refills, Acute 06/08/19 10:23:00 EST, 04/27/19 10:23:00 EST, Patch, [facility], 1 patch Topically [...]
--- OUTSIDE RECORDS SUMMARY | 2022-12-14 13:24 | XMS_ITS | Continuity of Care Document ---
Author Name Unknown Organization [facility] Hans lt Address [address] [place] [address]- Care Team Providers Care Director Of Annual Giving Name Role Phone Lora GÓMEZ, Lobo Sharp Primary Care Physician [id number] Date(s): 07/25/20 - 08/24/20 [facility] Adult [address] [place] [address]- Allergies, Adverse Reactions, Alerts Substance Reaction Severity Status NKA Active Immunizations Given and Recorded Vaccine Date Status Refusal Reason tetanus/diphtheria/pertussis, acel(Tdap) 05/07/19 Given influenza virus vaccine, inactivated 1 04/15/19 Gi jillian Not Given Vaccine Date Status Refusal Reason tetanus-diphtheria toxoids (Td) 04/15/19 Not Given Parent Or Guardian Refuses 1Result Comment: [facility]-[id number] Medications aspirin 81 mg oral delayed release tablet 81 mg, By Mouth, Daily, # 100 tablet, Refills 3, Tot. Refills 3, Maintenance, 06/14/20 17:14:00 EST, Route to Pharmacy Electronically, [facility], 179.5, cm, 09/23/19 12:23:00 EDT, Height, 84.3, kg, 03/31/19 1:34:00 EST, Dry Weight Start Date: 06/14/20 Status: Ordered atorvastatin 10 mg oral tablet 1 tablet = 10 mg, By Mouth, Daily at bedtime, # 30 tablet, 0 Refills, Maintenance, 04/06/19 11:27:00 EST, Tablet, [facility], 183, cm, 04/06/19 5:31:00 EST, [...] 11/15/19 12:58:00 EDT, Route to Pharmacy Electronically, [facility], 179.5, cm, 09/23/2011:23:00 EDT, Height, 84.3, [...] 11/15/19 12:58:00 EDT, Route to Pharmacy Electronically, [facility], 179.5, cm, 09/23/2011:23:00 EDT, Height, 84.3, [...]
--- OUTSIDE RECORDS SUMMARY | 2022-12-14 13:24 | XMS_ITS | Continuity of Care Document ---
Author Name Unknown Organization [facility] Hans lt Address [address] [place] [address]- Care Team Providers Care Wood Repatcher Name Role Phone Lora GÓMEZ, Lobo Sharp Primary [id number] Date[facility] 05/09/21 - 06/08/21 [facility] Adult [address] [place] [address]- Allergies, Adverse Reactions, Alerts No Known Allergies Immunizations Given and Recorded Vaccine Date Status Refusal Reason tetanus/diphtheria/pertussis, acel(Tdap) 05/07/19 Given influenza virus vaccine, inactivated 1 04/15/19 Gi jillian Not Given Vaccine Date Status Refusal Reason tetanus-diphtheria toxoids (Td) 04/15/19 Not Given Parent Or Guardian Refuses 1Result Comment: [facility]-[id number] Medications aspirin 81 mg oral delayed release tablet 81 mg, By Mouth, Daily, # 100 tablet, Refills 3, Tot. Refills 3, Maintenance, 05/10/21 12:56:00 EST, Route to Pharmacy Electronically, [facility], 179.5, cm, 09/23/19 12:23:00 EDT, Height Start Date: 05/10/21 Status: Ordered atorvastatin 10 mg oral tablet 1 tablet = 10 mg, By Mouth, Daily at bedtime, # 30 tablet, 0 Refills, Maintenance, 04/06/19 11:27:00 EST, Tablet, [facility], 183, cm, 04/06/19 [...] 11/15/19 12:58:00 EDT, Route to Pharmacy Electronically, [facility], 179.5, cm, 09/23/2011:23:00 EDT, Height, 84.3, [...] 05/10/21 12:57:00 EST, Route to Pharmacy Electronically, [facility], 179.5, cm, 09/23/2011:23:00 EDT, Height Start Date: 05/10/21 Status: Ordered Narcan 4 mg/0.1 mL nasal spray = 4 mg, Nares, Both, Once, # 2 each, 0 Refills, Soft Stop, 04/15/19 13:46:00 EST, [facility] #[id number], 179.5, cm, 04/15/19 13:12:00 EST, [...]
--- OUTSIDE RECORDS SUMMARY | 2022-12-14 13:24 | XMS_ITS | Continuity of Care Document ---
Author Name Unknown Organization [facility] Hans lt Address [address] [place] [address]- Care Team Providers Care Oncology Admin Name Role Phone Lora GÓMEZ, Lobo Sharp Primary Care Physician Encounter [facility] [place] [facility] Date(s): 10/13/19 - 11/12/19 [facility] Adult [address] [place] [address]- [facility] Attending Physician: Tracy Crawley Admitting Physician: Tracy Crawley Referring Physician: AdmtrTracy Allergies, Adverse Reactions, Alerts Substance Reaction Severity Status NKA Active Immunizations Given and Recorded Vaccine Date Status Refusal Reason tetanus/diphtheria/pertussis, acel(Tdap) 05/07/19 Given influenza virus vaccine, inactivated 1 04/15/19 Gi jillian Not Given Vaccine Date Status Refusal Reason tetanus-diphtheria toxoids (Td) 04/15/19 Not Given Parent Or Guardian Refuses 1Result Comment: [facility] 2]-[id number] Medications aspirin 81 mg oral delayed release tablet 81 mg, By Mouth, Daily, # 30 tablet, Refills 11, Tot. Refills 11, Maintenance, 05/04/19 17:22:00 EST, Route to Pharmacy Electronically, [facility], 179.5, cm, 04/27/19 9:59:00 EST, Height, 84.3, kg, 03/31/19 1:34:00 EST, Dry W... Start Date: 05/04/19 Status: Ordered atorvastatin 10 mg oral tablet 1 tablet = 10 mg, By Mouth, Daily at bedtime, # 30 tablet, 0 Refills, Maintenance, 04/06/19 11:27:00 EST, Tablet, [facility], 183, cm, 04/06/19 5:31:00 [...] tablet, Refills 5, Tot. Refills 5, Maintenance, 11/09/19 10:09:00 EDT, Route to Pharmacy Electronically, [facility], 179.5, cm, 09/23/19 12:23:00 EDT, Height, 84.3, kg, 03/31/19 1:34:00 EST,... Start Date: 11/09/19 Status: Ordered methadone 10 mg oral tablet 3 tablet = 30 mg, By Mouth, Daily, 0 Refills, Maintenance, 04/06/19 11:28:00 EST, Tablet, Partial fill upon patient request Start Date: 04/06/19 Status: Ordered metoprolol 50 mg oral tablet, extended release 50 mg, 1, tablet, By Mouth, Daily, # 30 tablet, Refills 5, Tot. Refills 5, Maintenance, 11/09/19 12:07:00 EDT, Route to Pharmacy Electronically, [facility], 179.5, cm, 09/23/19 12:23:00 EDT, Height, 84.3, kg, 03/31/19 1:34:00 EST,... Start Date: 11/09/19 Status: Ordered Narcan 4 mg/0.1 mL nasal [...]
--- OUTSIDE RECORDS SUMMARY | 2022-12-14 13:24 | XMS_ITS | Continuity of Care Document ---
Author Name Unknown Organization [facility] Hans lt Address [address] [place] [address]- Care Team Providers Care Nursery Laborer Name Role Phone Lora GÓMEZ, Lobo Sharp Primary Care Phys[id number] Date(s[facility] 04/28/20 - 05/28/20 [facility] Adult [address] [place] [address]- Allergies, Adverse Reactions, Alerts Substance Reaction Severity Status NKA Active Immunizations Given and Recorded Vaccine Date Status Refusal Reason tetanus/diphtheria/pertussis, acel(Tdap) 05/07/19 Given influenza virus vaccine, inactivated 1 04/15/19 Gi jillian Not Given Vaccine Date Status Refusal Reason tetanus-diphtheria toxoids (Td) 04/15/19 Not Given Parent Or Guardian Refuses 1Result Comment: [facility]-[id number] Medications aspirin 81 mg oral delayed release [...] Refills, Maintenance, 04/06/19 11:27:00 EST, Tablet, [facility], 183, cm, 04/06/19 5:31:00 EST, [...]
--- OUTSIDE RECORDS SUMMARY | 2022-12-14 13:24 | XMS_ITS | Continuity of Care Document ---
Author Name Unknown Organization [facility] Hans lt Address [address] [place] [address]- Care Team Providers Care Rouge Mixer Name Role Phone Lobo Paulino MD Primary Care Physician Encounter [facility] Date(s): 07/06/19 - 07/13/19 [facility] [address] [place] [address]- [facility] Attending Physician: Lobo Paulino MD Allergies, Adverse Reactions, Alerts Substance Reaction Severity Status NKA Active Immunizations Given and Recorded Vaccine Date Status Refusal Reason tetanus/diphtheria/pertussis, acel(Tdap) 05/07/19 Given influenza virus vaccine, inactivated 1 04/15/19 Gi jillian Not Given Vaccine Date Status Refusal Reason tetanus-diphtheria toxoids (Td) 04/15/19 Not Given Parent Or Guardian Refuses 1Result Comment: [id number] Medications aspirin 81 mg oral delayed release [...] 0 Refills, Maintenance, 04/06/19 11:27:00 EST, Tablet, [facility], 183, cm, 04/06/19 5:31:00 [...] 0 Refills, Soft Stop, 04/15/19 13:46:00 EST, [facility]/pharmacy #[id number], 179.5, cm, 04/15/19 13:12:00 EST, [...]
--- OUTSIDE RECORDS SUMMARY | 2022-12-14 13:24 | XMS_ITS | Continuity of Care Document ---
Author Name Unknown Organization [facility], [place], [facility] Address [address] [place] [address]- Care Team Providers Care Tv News Director Name Role Phone oLra GÓMEZ, Lobo Sharp [facility] Phys[id number] Date(s): 07/25/20 - 08/24/20 [facility] [place] [address] [place] [address]- Attending Physician: Kalin GÓMEZ, Behzad Milian Allergies, Adverse Reactions, Alerts Substance Reaction Severity Status NKA Active Immunizations Given and Recorded Vaccine Date Status Refusal Reason tetanus/diphtheria/pertussis, acel(Tdap) 05/07/19 Given influenza virus vaccine, inactivated 1 04/15/19 Gi jillian Not Given Vaccine Date Status Refusal Reason tetanus-diphtheria toxoids (Td) 04/15/19 Not Given Parent Or Guardian Refuses 1Result Comment: [facility]-[id number] Medications aspirin 81 mg oral delayed release tablet 81 mg, By Mouth, Daily, # 100 tablet, Refills 3, Tot. Refills 3, Maintenance, 06/14/20 17:14:00 EST, Route to Pharmacy Electronically, [facility], 179.5, cm, 09/23/19 [...] 11/15/19 12:58:00 EDT, Route to Pharmacy Electronically, [facility], 179.5, cm, 09/23/2011:23:00 EDT, [...] 11/15/19 12:58:00 EDT, Route to Pharmacy Electronically, [facility], 179.5, cm, 09/23/2011:23:00 EDT, [...]
[2022-12-14] MEDS: Diphth,Pertus(ACell),Tet Adult 0.5 ML SYRINGE IM (13:50)
--- NOTE | 2022-12-14 13:58 | PC.NURSE ---
pt medicated per MAR tetanus given in left deltoid. pt sts that he should be wearing glasses (bifocals). he was told this 4-5 years ago. he sts he does not wear them because the woman at the desk won't schedule me because I'm white encouraged pt to re-establish care to correct his vision.
== END 2022-12-14 15:05 | disposition home or self-care (01) ==
PROVIDERS: Emergency Provider Emergency Medicine; PCP Family Medicine
DX: T15.01XA Foreign body in cornea, right eye, initial encounter (principal); Y93.89 Activity, other specified; F19.10 Other psychoactive substance abuse, uncomplicated; Y92.9 Unspecified place or not applicable; Y99.9 Unspecified external cause status
CPT/HCPCS: 90471; 90715; 99282; 99284

== ENCOUNTER 2023-04-01 12:58 | Emergency (ER) | payer OTHER, SELFPAY ==
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
--- NOTE | ~2023-04-01 | XR_ITS ---
EXAMINATION: XR CHEST CLINICAL INFORMATION: Shortness of breath COMPARISON: None available. TECHNIQUE: 2 views of the chest were obtained. FINDINGS: Slight interstitial prominence. Bibasilar atelectasis. No pneumothorax. Trachea is midline. Cardiac mediastinal silhouette is not enlarged. No large pleural effusion. Degenerative changes of the thoracolumbar spine. Soft tissues are unremarkable. XR/XR chest 2V IMPRESSION: 1. Slight interstitial prominence. 2. Bibasilar atelectasis.
[2023-04-01 13:04] VITALS: BP 109/41; PULSE 58; RESP 18; TEMP 37.1; O2SAT 98; BMI 23.6
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
[2023-04-01 16:42] VITALS: BP 136/83; PULSE 56; RESP 18; TEMP 36.4; O2SAT 99
[2023-04-01 18:00] VITALS: RESP 18
--- NOTE | 2023-04-01 18:45 | PC.NURSE ---
left AMA- provider camejo aware and discharged as AMA per provider camejo. no distress. ambulatory. +CMS. as a result pt declined to answer full assessment questions
== END 2023-04-01 18:30 | disposition left against medical advice (07) ==
PROVIDERS: Emergency Provider Emergency Medicine
DX: S13.4XXA Sprain of ligaments of cervical spine, initial encounter (principal); R51.9 Headache, unspecified; M79.10 Myalgia, unspecified site; R06.02 Shortness of breath; M54.2 Cervicalgia; V43.52XA Car driver injured in collision with other type car in traffic accident, initial encounter; Y93.9 Activity, unspecified; Y92.410 Unspecified street and highway as the place of occurrence of the external cause; Y99.9 Unspecified external cause status
CPT/HCPCS: 70450; 71046; 72125; 99284